=== PATIENT | female | born 1955 | race Caucasian/White ===

== ENCOUNTER → 2018-05-10 14:34 | Outpatient (CLI) | payer OTHER, SELFPAY ==
[2018-05-10 15:13] LABS: Hemoglobin A1C% w Est Avg Glu 9.9 % (4.0-6.0)
[2018-05-10 15:29] LABS: Alanine Aminotransferase 29 IU/L (9-52); Albumin 4.3 g/dL (3.5-5.0); Albumin Globulin Ratio 1.5 (1.0-2.8); Alkaline Phosphatase 86 U/L (38-126); Aspartate Aminotransferase 39 IU/L (14-36); BUN Creatinine Ratio 12.5 (6-22); Bilirubin Total 0.5 mg/dL (0.2-1.3); Blood Urea Nitrogen 10 mg/dL (7-17); Calcium 9.4 mg/dL (8.4-10.2); Carbon Dioxide 27 mmol/L (22-32); Chloride 107 mmol/L (98-107); Cholesterol 129 mg/dL (140-199); Estimated Glomerular Filt Rate > 60.0 mL/min (>60); Globulin 2.9 g/dL (1.7-4.1); Glucose 181 mg/dL (80-110); HDL Cholesterol 37 mg/dL (40-60); HEMOLYSIS < 15 (0-50); LDL Cholesterol Calculated 36 mg/dL (<100); Potassium 5.9 mmol/L (3.4-5.1); Sodium 145 mmol/L (137-145); Total Protein 7.2 g/dL (6.3-8.2); Triglycerides 280 mg/dL (35-150)
[2018-05-10 15:45] LABS: Free T3, Triiodothyronine Free 3.19 pg/mL (2.77-5.27); Free T4, Direct Thyroxine 1.88 ng/dL (0.78-2.19)
[2018-05-10 15:58] LABS: Thyroid Stimulating Hormone 0.58 uIU/mL (0.47-4.68)
== END ==
PROVIDERS: PCP Family Medicine; Visit Provider Family Medicine
DX: E03.9 Hypothyroidism, unspecified (principal); E11.42 Type 2 diabetes mellitus with diabetic polyneuropathy; E78.2 Mixed hyperlipidemia; G45.9 Transient cerebral ischemic attack, unspecified; I10 Essential (primary) hypertension; K57.30 Diverticulosis of large intestine without perforation or abscess without bleeding; R73.9 Hyperglycemia, unspecified; Z79.4 Long term (current) use of insulin; Z86.73 Personal history of transient ischemic attack (TIA), and cerebral infarction without residual deficits
CPT/HCPCS: 36415; 80053; 80061; 83036; 84439; 84443; 84481

== ENCOUNTER → 2018-05-14 15:49 | Outpatient (CLI) | payer OTHER, SELFPAY ==
[2018-05-14 16:39] LABS: HEMOLYSIS 47 (0-50); Potassium 4.5 mmol/L (3.4-5.1)
== END ==
PROVIDERS: Family Provider Family Medicine; PCP Family Medicine; Visit Provider Family Medicine
DX: E87.5 Hyperkalemia (principal)
CPT/HCPCS: 36415; 84132

== ENCOUNTER → 2018-08-23 14:14 | Outpatient (CLI) | payer OTHER, SELFPAY ==
--- NOTE | 2018-08-23 14:14 | DI.MG.S_ITS ---
BILATERAL DIGITAL SCREENING MAMMOGRAM 3D/2D WITH CAD: 08/23/2018 CLINICAL: Routine screening. Comparison is made to exams dated: 09/25/2014 mammogram and 01/12/2012 mammogram - [facility]. The tissue of both breasts is predominantly fatty. Current study was also evaluated with a Computer Aided Detection (CAD) system. No significant masses, calcifications, or other findings are seen in either breast. There has been no significant interval change. IMPRESSION: NEGATIVE There is no mammographic evidence of malignancy. A 1 year screening mammogram is recommended. This exam was interpreted at Station ID: [id number]. NOTE: For mammograms, a report in lay terms will be sent to the patient. Approximately 15% of breast malignancies will not be visualized mammographically. In the management of a palpable breast mass, a negative mammogram must not discourage biopsy of a clinically suspicious lesion. Electronically Signed By: Madelyn blankenship/ruddy:09/01/2018 09:20:57 letter sent: Normal Exam ACR BI-RADS Category 1: Negative [id number]
== END ==
PROVIDERS: Family Provider Family Medicine; PCP Family Medicine; Visit Provider Family Medicine
DX: Z12.31 Encounter for screening mammogram for malignant neoplasm of breast (principal)
CPT/HCPCS: 77063; 77067

== ENCOUNTER → 2018-09-22 12:13 | Outpatient (CLI) | payer OTHER, SELFPAY ==
--- NOTE | 2018-09-22 | DI.ECHO.S_ITS ---
[facility] +---------+ : : [address] : : : : [place], : : : : [place] [address] : : : : Phone: [phone] + [facility]-[id number] Echocardiogram Report + + :Name: ALVERTO LOZANO Study Date: 09/22/2018 Height: 66 in : :[facility] Weight: 183 lb : : Gender: Female BSA: 1.9 m2 : :: 1955 Age: 63 yrs BP: 166/88 mmHg: :Reason For Study: STENOSIS OF CAROTID, NEAR SYNCOPE : :Ordering Physician: Paris : :Teresa Performed By: Fawn Diggs : :Referring: PARIS SIDHU : + + Interpretation Summary Left ventricular systolic function is normal without focal wall motion abnormalities with the ejection fraction visually estimated to be 65-70%. There is moderate concentric left ventricular hypertrophy with a relatively small left ventricular cavity but there is no echo evidence for significant left ventricular outflow tract obstruction. There has been no significant change since the previous study. The right ventricle grossly appears normal in size with probable normal systolic function and grossly appears unchanged compared to the previous study. Pulmonary artery pressures cannot be estimated because of the lack of a measurable TR jet velocity. Both atria are fairly small and have mildly decreased in size since the prior echo exam. There is no significant valvular heart disease. The ascending aorta is mild-moderately enlarged but is unchanged compared to the previous study. The patient was in sinus tachycardia with heart rates between 100-105 bpm during the exam which is considerably faster compared to the previous study. Procedure: A two-dimensional transthoracic echocardiogram with color flow and Doppler was performed. The study quality was technically adequate. Comparison is made with the echocardiogram of 01/13/2017. The patient was in sinus tachycardia with heart rates between 100-105 bpm during the exam. This is considerably faster compared to the previous study. Left Ventricle: There is moderate concentric left ventricular hypertrophy. The left ventricular cavity is small. There is no echo evidence for significant left ventricular outflow tract obstruction. Left ventricular systolic function is normal without focal wall motion abnormalities. The ejection fraction is estimated to be 65-70%. Diastolic function could not be accurately assessed due to tachycardia. There has been no significant change since the previous study. Right Ventricle: The right ventricle grossly appears normal in size with probable normal systolic function. This is unchanged compared to the previous study. Atria: The left atrium is small. Both atria have mildly decreased in size since the prior echo exam. Right atrium is small. There is no Doppler evidence for an interatrial shunt. Mitral Valve: There is mild mitral annular calcification. The mitral valve leaflets appear mildly thickened, but open well. There is no mitral regurgitation noted. Aortic Valve: The aortic valve is not well visualized. The aortic valve is grossly normal. The aortic valve opens well. There is no aortic valve stenosis. No aortic regurgitation is present. Tricuspid Valve: The tricuspid valve is not well visualized, but is grossly normal. There is trace tricuspid regurgitation. Pulmonary artery pressures cannot be estimated because of the lack of a measurable TR jet velocity. Pulmonic Valve: The pulmonic valve is not well seen, but is grossly normal. There is no significant valvular heart disease. Great Vessels: The aortic root is normal size. The ascending aorta is mild- moderately enlarged. This is unchanged compared to the previous study. The aortic arch is normal in size. The pulmonary is not well visualized. The inferior vena cava was not visualized. Pericardium/ Pleura There is no pericardial effusion. There is no pleural effusion. MMode/2D Measurements & Calculations LVIDd: 3.8 cm LVOT diam: 2.0 cm LVIDs: 2.4 cm Ao root diam: 2.8 cm IVSd: 1.4 cm asc Aorta Diam: 3.9 cm LVPWd: 0.88 cm Ao Arch Diam (Prox Trans): 2.2 cm LV troy. diameter/BSA (cm/m^2): 2.0 LV sys. diameter/BSA (cm/m^2): 1.2 FS: 36.7 % LA A2 area: 11.3 cm2 RA long axis: 3.6 cm LA A4 area: 12.2 cm2 RA area: 6.2 cm2 LA length (vol): 4.7 cm RA vol: 9.1 ml LA vol: 24.5 ml RA : 4.7 ml/m2 LA vol index: 12.7 ml/m2 RVD1 (basal): 2.3 cm Doppler Measurements & Calculations Ao V2 max: 114.3 cm/sec LVOT Max Gerardo: 89.6 cm/sec Ao V2 mean: 88.9 cm/sec LV V1 max P.2 mmHg Ao V2 VTI: 16.8 cm LV V1 VTI: 12.1 cm Ao max P.2 mmHg Ao mean P.3 mmHg NORMA(I,D): 2.2 cm2 SV(LVOT): 36.3 ml NORMA(V,D): 2.3 cm2 NORMA indexed to BSA (cm^2/m^2): 1.1 sev ratio: 0.72 Reading Physician:LORENA
--- NOTE | 2018-09-22 | DI.US.S_ITS ---
PROCEDURE: US CAROTID DOPPLER BI INDICATIONS: STENOSIS OF CAROTID ARTERY,NEAR SYNCOPE TECHNIQUE: Color and pulse Doppler interrogation was performed of both carotid systems, with image documentation and velocity measurements. COMPARISON: None. FINDINGS: Stenosis calculations are based on SRU (Society of Radiologists in Ultrasound) criteria. Right side: Brachial blood pressure: 140/89 mm Hg. Common carotid artery peak systolic velocity: 93 cm/sec. Internal carotid artery peak systolic velocity: 209 cm/sec. Internal carotid artery end diastolic velocity: 57 cm/sec. External carotid artery peak systolic velocity: 91 cm/sec. ICA/CCA peak systolic ratio: 2.26. Steinberg scale imaging description: Calcified plaque Percent internal carotid artery stenosis: 50-69%. Vertebral artery: Flow direction is antegrade. Left side: Brachial blood pressure: 57/90 mm Hg. Common carotid artery peak systolic velocity: 94 cm/sec. Internal carotid artery peak systolic velocity: 54 cm/sec. Internal carotid artery end diastolic velocity: 17 cm/sec. External carotid artery peak systolic velocity: 110 cm/sec. ICA/CCA peak systolic ratio: 0.58. Steinberg scale imaging description: No definite plaque identified, however origin of the left internal carotid artery is poorly visualized due to scar tissue. Percent internal carotid artery stenosis: Less than 50%. Vertebral artery: Flow direction is antegrade. IMPRESSION: 1. 50-69% stenosis of the origin of the right internal carotid artery. 2. Less than 50% stenosis of left internal carotid artery. Please note the origin of the left internal carotid artery is poorly visualized due to a postsurgical soft tissue scarring. Dictated by: Melissa Ch MD, PhD on 09/22/2018 at 14:27 Approved by: Melissa Ch MD, PhD on 09/22/2018 at 14:30
== END ==
PROVIDERS: Family Provider Family Medicine; PCP Family Medicine; Visit Provider Internal Medicine Cardiovascular Disease
DX: I65.23 Occlusion and stenosis of bilateral carotid arteries (principal); R55 Syncope and collapse
CPT/HCPCS: 93306; 93880

== ENCOUNTER 2019-01-11 00:52 | Observation (INO) | payer OTHER, SELFPAY ==
[2019-01-11] VITALS (15 sets, daily range): BP systolic 137–203; BP diastolic 71–100; PULSE 67–91; RESP 15–20; TEMP 36.5–37; O2SAT 93–97; BMI 29.0
--- NOTE | 2019-01-11 | DI.MRI.S_ITS ---
PROCEDURE: MR ANGIO HEAD WO CON INDICATIONS: RIGHT SIDED WEAKNESS. LEFT SIDED HEADACHES TECHNIQUE: Noncontrast axial 3-D [id number] MR angiogram, with 3-dimensional maximum intensity projection (MIP) reformats of the internal carotid arteries and posterior circulation then performed. COMPARISON: [facility], , ANGIO HEAD WITHOUT CONTRAST, 05/11/2015, 11:23. FINDINGS: Image quality: Excellent. Anterior circulation: There is a moderate to high-grade stenosis within the right clinoid internal carotid artery. There is mild diffuse stenosis of the bilateral internal arteries. The flow within the paired anterior cerebral arteries is normal and symmetric. The flow within the middle cerebral arteries is normal and symmetric. The anterior communicating artery is seen. No stenoses, occlusions, or aneurysms. Posterior circulation: Visualized portions of the vertebral arteries demonstrate normal caliber, and join to form a normal appearing basilar artery. Near origin of the right posterior cerebral artery. There is a high-grade stenosis within the proximal P2 segment of the left posterior cerebral artery. The flow within the posterior cerebral arteries is otherwise normal and symmetric. No stenoses, occlusions, or aneurysms. IMPRESSION: 1. Bilateral anterior and posterior circulation stenoses. Dictated by: Jame Urbina M.D. on 01/11/2019 at 8:35 Approved by: Jame Urbina M.D. on 01/11/2019 at 8:40
--- NOTE | 2019-01-11 | DI.ECHO.S_ITS ---
[facility] +---------+ : : [address] : : [place] : : : : [id number] : : : : Phone: [phone]+ Echocardiogram Report + + :Name: ALVERTO LOZANO Study Date: 01/11/2019 Height: 63 in : :[facility] Exam Location: [place] Weight: 183 lb : : Gender: Female BSA: 1.9 m2 : :: 1955 Age: 63 yrs BP: 166/88 mmHg: :Reason For Study: TIA : :Ordering Physician: Sung : :Hospitalist Performed By: Annette Page : :Referring: RAFA HUBER : + + Interpretation Summary A limited echocardiogram was performed to assess for a possible source of a TIA. There is apical hypokinesis. Apical hypokinesis appears to be new since prior study. Echogenic structure noted in the apex of the left ventricle. This was not visualized on the prior exam's. Measuring at approximately 1x 1 cm. 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 There is no Doppler evidence for an interatrial shunt. Injection of contrast documented no interatrial shunt. Procedure: A two-dimensional transthoracic echocardiogram with color flow and Doppler was performed in limited views only. The study quality was technically adequate. Comparison is made with the echocardiogram of 09/22/2018. A saline contrast injection was performed to assess for cardiac shunting. The patient was in normal sinus rhythm during the exam. Left Ventricle: Echogenic structure noted in the apex of the left ventricle. This was not visualized on the prior exam's. Measuring at approximately 1x 1 cm. 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 There is apical hypokinesis. Apical hypokinesis appears to be new since prior study. Atria: There is no Doppler evidence for an interatrial shunt. Injection of contrast documented no interatrial shunt. MMode/2D Measurements & Calculations asc Aorta Diam: 3.8 cm Reading Physician:09:55 AM
--- NOTE | 2019-01-11 | DI.MRI.S_ITS ---
PROCEDURE: MR HEAD/BRAIN WO CON INDICATIONS: TIA, hx CVA. RIGHT SIDED NUMBNESS. LEFT SIDED HEADACHE TECHNIQUE: Non-contrast axial T1 spin echo, axial T2 fast spin echo, sagittal and axial FLAIR, coronal T2 fast spin echo, axial gradient echo, axial diffusion and ADC through the brain. COMPARISON: [facility], MR, BRAIN WITHOUT CONTRAST, 01/13/2017, 11:45. [facility], MR, BRAIN WITHOUT CONTRAST, 05/11/2015, 11:23. FINDINGS: Image quality: Excellent. CSF spaces: Ventricles appear symmetric in size and shape. Basal cisterns are patent. No extra-axial fluid collections. Brain: No intracranial bleeds or mass effects. There is cerebral volume loss for age. There are periventricular and deep white matter chronic small vessel ischemic changes. Brainstem appears normal. Diffusion-weighted images show no acute ischemic insults. No chronic ischemic insults. Normal intravascular flow voids are present. Skull and face: Calvarial bone marrow is normal in signal. Orbits are normal. Sinuses: Mild mucosal thickening within the bilateral ethmoid air cells. Sinuses and mastoids are otherwise clear. IMPRESSION: 1. No acute process. No recent infarct. 2. Mild volume loss and small vessel ischemic disease. 3. Mild sinus disease. Dictated by: Jame Urbina M.D. on 01/11/2019 at 8:34 Approved by: Jame Urbina M.D. on 01/11/2019 at 8:35
--- NOTE | 2019-01-11 00:58 | DI.CT.S_ITS ---
PROCEDURE: CT HEAD/BRAIN WO CON INDICATIONS: TIM, R side weakness/numbness hx CVA TECHNIQUE: Noncontrast 4.5 mm thick angled axial sections acquired from the foramen magnum to the vertex, with coronal and sagittal reformats. For radiation dose reduction, the following was used: automated exposure control, adjustment of mA and/or kV according to patient size. COMPARISON: [facility], CT, HEAD WITHOUT CONTRAST, 01/12/2017, 19:46. FINDINGS: Image quality: Excellent. CSF spaces: Basal cisterns are patent. No extra-axial fluid collections. The ventricles are symmetric in size and shape. Brain: No intracranial bleeds or masses. Focal loss of he-white matter differentiation noted in the anterior margin of the left temporal lobe which could represent artifact versus subacute infarct. There is cerebral volume loss for age, with resultant ventricular and sulcal prominence. There are periventricular and deep white matter chronic small vessel ischemic changes. There is intracranial internal carotid artery and vertebral artery atherosclerosis. Skull and face: Calvarium and visualized facial bones appear intact, without suspicious lesions. Sinuses: Visualized sinuses and mastoids are clear. IMPRESSION: Anterior left temporal lobe loss of he-white matter differentiation compatible with artifact versus subacute infarct. Dictated by: Melissa Ch MD, PhD on 01/11/2019 at 7:45 Approved by: Melissa Ch MD, PhD on 01/11/2019 at 7:47
[2019-01-11] MEDS: SODIUM CHLORIDE 0.9% 1,000 ML 150 ML IV (01:30)
--- NOTE | 2019-01-11 01:33 | ED_ITS ---
HPI - Neuro Symptoms/Deficit General Chief Complaint: Neuro Symptoms/Deficit Stated Complaint: states having a stroke Time Seen by Provider: 01/11/19 00:57 Source: patient and family Mode of arrival: wheelchair Limitations: no limitations History of Present Illness HPI Narrative: 63-year-old female with history of hypertension diabetes and prior stroke presents to the emergency department with a chief complaint ne urologic symptoms that began tonight at 9:00 p.m.. She states initially she had some numbness and tingling in her right arm which went away and she went to sleep. She woke up at midnight with a severe headache a recurrence of some of the pain in her right arm. She denies any recent injury or trauma. She has had no fever or chills. She admits to being a bit confused and having some blurred vision. She was not activated as a code stroke because her symptoms are over 4.5 hours and her LAMS score is low. Onset (ago): hour(s) Last Observed Normal: 21:00 History of same: No Severity: moderate Quality: weak and tingling Relieving factors: none Exacerbating factors: none Context: gradual onset On Anticoagulants: No Associated symptoms: confusion Treatments Prior to Arrival: none Related Data Home Medications Medication Instructions Recorded Confirmed Glucose: Test Strips #1 ea 05/24/18 12/21/18 Lancets #1 ea 05/24/18 12/21/18 Previous Rx's Medication Instructions Recorded adjuvant AS01B (PF), component 0.5 ml IM ONCE #0.5 ml 05/24/18 vial 1 of 2 intramuscular suspension atorvastatin 20 mg tablet 20 mg PO HS #90 tab 05/24/18 clopidogrel 75 mg tablet 75 mg PO HS #90 tab 05/24/18 gabapentin 300 mg capsule 300 mg PO TID #270 cap 05/24/18 levothyroxine 200 mcg tablet 200 mcg PO QAM #90 tab 05/24/18 pneumococcal 13-mark conj 0.5 ml IM ONCE #0.5 ml 05/24/18 vaccine-dip crm (PF) 0.5 mL IM syringe paroxetine 30 mg tablet 30 mg PO QAM #90 tab 07/12/18 omeprazole 20 mg capsule,delayed 20 mg PO DAILY #90 cap 11/02/18 release [place] #100 each 11/17/18 insulin NPH isophane U-100 human See Rx Instructions SUBCUT BID #90 11/17/18 100 unit/mL (3 mL) subcutaneous pen ml levothyroxine 25 mcg tablet 25 mcg PO QAM #90 tab 11/17/18 Allergies Allergy/AdvReac Type Severity Reaction Status Date / Time codeine [CODEINE] Allergy Unknown VOMITING Verified 12/21/18 17:26 hydromorphone [From DILAUDID] Allergy Unknown I DON'T Verified 12/21/18 17:26 WAKE UP meperidine [From DEMEROL] Allergy Unknown VOMITING Verified 12/21/18 17:26 Penicillins [PENICILLINS] Allergy Unknown THROAT Verified 12/21/18 17:26 CLOSES Review of Systems Constitutional Denies chills, Denies fever(s), Denies lethargy and Reports weakness Eyes Denies change in vision, Denies eye discharge, Denies irritation and Reports loss of vision ENT Ears, Nose, Mouth, and Throat: Denies change in voice, Denies neck pain and Denies sore throat Cardiovascular Denies chest pain, Denies irregular heart rhythm, Denies lightheadedness, Denies palpitations, Denies dyspnea, Denies dyspnea on exertion and Denies orthopnea Respiratory Denies cough, Denies dyspnea, Denies dyspnea on exertion and Denies wheezing Gastrointestinal Gastrointestinal: Denies abdominal pain, Denies change in bowel habits, Denies diarrhea, Denies nausea and Denies vomiting Genitourinary Denies hematuria, Denies flank pain, Denies urinary incontinence and Denies urinary urgency Musculoskeletal Denies neck pain Integumentary/Breasts Denies pruritus, Denies erythema, Denies rash and Denies wounds Neurologic Reports confusion, Reports focal weakness, Reports loss of vision and Reports weakness Psychiatric Denies anxiety, Reports confusion, Denies depression, Denies homicidal ideation and Denies suicidal ideation Endocrine Denies palpitations Hematologic/Lymphatic Denies easy bruising Allergic/Immunologic Denies wheezing [facility] Medical History Cataracts, bilateral (Acute 2007) Carotid artery disease (Chronic 2013) Chronic back pain (Chronic) Depression (Chronic 1985) Diabetes (Chronic 2004) GERD (gastroesophageal reflux disease) (Chronic 1989) Generalized headaches (Chronic) Hyperlipidemia (Chronic) Hypothyroidism (Chronic) Migraines (Chronic) Peripheral vascular disease (Chronic 2012) Sleep apnea (Chronic) Vertigo (Chronic 2014) Chickenpox (Resolved 1957) Colitis (Resolved 1988) Dysplastic polyp of colon (Resolved ~2001) Fractures (Resolved) History of trigger finger (Resolved) Hyperthyroidism (Resolved 1993) Measles (Resolved 1956) Mumps (Resolved 1958) Plantar warts (Resolved) Stroke (Resolved 2013) Surgical History History of left-sided carotid endarterectomy (Resolved) History of partial colectomy (Resolved) Hx of cholecystectomy (Resolved) Hx of knee surgery (Resolved) Hx of surgical procedure (Resolved) Hx of surgical procedure (Resolved) History of tonsillectomy Status post appendectomy Family History (Updated 05/20/18 @ 13:15 by Mariana Saab LPN) Mother Cancer Sister Diabetes mellitus Father Cancer Social History Smoking Status: Current every day smoker Tobacco: How many years used: 50 alcohol intake: never Family History Mother Cancer Sister Diabetes mellitus Father Cancer Social History Smoking Status: Current every day smoker Tobacco: How many years used: 50 alcohol intake: never Exam Narrative Exam Narrative: GENERAL: 63-year-old female appears stated age, obviously uncomfortable, sitting in a dark room with a towel over her eyes HEAD: Atraumatic. Normocephalic. No temporal or scalp tenderness. EYES: Pupils equal round and reactive. Extraocular motions intact. No scleral icterus. No injection or drainage. ENT: Nose without bleeding, purulent drainage or septal hematoma. Throat without erythema, tonsillar hypertrophy or exudate. Uvula midline. Airway patent. NECK: Trachea midline. No JVD or lymphadenopathy. Supple, nontender, no meningeal signs. CARDIOVASCULAR: Regular rate and rhythm without murmurs, gallops, or rubs. RESPIRATORY: Clear to auscultation. Breath sounds equal bilaterally. No wheezes, rales, or rhonchi. GASTROINTESTINAL: Abdomen soft, non-tender, nondistended. No hepato-splen omegaly, or palpable masses. No guarding. EXTREMITIES: No clubbing, cyanosis, or edema. No joint tenderness, effusion, or edema noted. BACK: Nontender without deformity or crepitance. No flank tenderness. NEURO: AOx3. SKIN: No rash or erythema. Initial Vital Signs Initial Vital Signs: Vital Signs Pulse Rate 87 01/11/19 01:00 Respiratory Rate 17 01/11/19 01:00 Blood Pressure 195/84 H 01/11/19 01:00 Pulse Oximetry 94 01/11/19 01:00 Scores NIH Stroke Scale Level of Conciousness: Alert, keenly responsive Ask month/age: Answers both questions correctly. Open/close eyes, close hand: Performs both tasks correctly Best gaze horizontal: Normal Visual delgadillo: No visual loss Facial palsy: Normal symetrical movement Left arm drift: No drift for full 10 sec Right arm drift: Drifts down, not to bed Left leg drift: No drift for full 10 sec Right leg drift: No drift for full 10 sec Limb ataxia: Absent Sensory on face/arms/legs: Normal, no sensory loss Best language: No aphasia, normal Dysarthria: Normal Extinction or inattention: No abnormality Total NIH Stroke scale score: 1 Course Orders Ordered: ED Orders 01/11/19 00:58 CT head/brain wo con Stat Urine Drug Screen, Rapid Stat EKG-12 Lead Stat 01/11/19 01:30 Basic Metabolic Panel Stat Complete Blood Count AUTO DIFF Stat Partial Thromboplastin Time Stat Prothrombin Time INR Stat Troponin I Stat 01/11/19 01:33 CT angio head and neck Stat Sodium Chloride (Normal Saline 0.9%) 1,000 mls @ 150 mls/hr IV CONT PADMINI Last Admin: 01/11/19 01:30 Dose: 150 mls/hr Discontinued Medications Ketorolac Tromethamine (Toradol) 15 mg IV NOW ONE Stop: 01/11/19 03:00 Last Admin: 01/11/19 03:05 Dose: 15 mg Labetalol HCl (Normodyne) 10 mg IV NOW ONE Stop: 01/11/19 03:00 Last Admin: 01/11/19 03:10 Dose: 5 mg Consultations Consultation #1: call to [facility] Stroke upon receipt of head CT. We discussed treating HTN which may be contributing to TIM, but elect to hold off until results of CTA are known. Images acquired and in the process of being pushed Time: 02:06 Consultation #2: call back to [facility]. ok to treat HTN with goal 180SBP. At this point unclear if it is HTN secondary to ischemic event, HTN episode, or atypical migraine. Recommends admission to hospital for MRI/MRA and echo Consultation #3: hospitalist happy to accept Vital Signs - 8 hr 01/11/19 01:00 01/11/19 01:05 01/11/19 01:16 Temperature 97.9 F Pulse Rate 87 88 89 Respiratory Rate 17 18 20 Blood Pressure 194/100 H Blood Pressure [Left Arm] 195/84 H 194/100 H Pulse Oximetry 94 93 95 01/11/19 02:00 01/11/19 02:49 01/11/19 03:11 Temperature Pulse Rate 87 89 91 H Respiratory Rate 16 19 Blood Pressure Blood Pressure [Left Arm] 185/94 H 187/100 H 203/91 H Pulse Oximetry 94 95 01/11/19 03:25 Temperature Pulse Rate 82 Respiratory Rate Blood Pressure Blood Pressure [Left Arm] 153/78 H Pulse Oximetry MDM - Neuro Symptoms/Deficit Lab Data Result diagrams: 01/11/19 01:30 01/11/19 01:30 Lab Results 01/11/19 01/11/19 01/11/19 Range/Units 01:30 01:30 01:30 WBC 7.6 (4.5-11.0) X10^3/uL RBC 5.00 (4.0-5.2) X10^6/uL Hgb 12.9 (12.0-16.0) g/dL Hct 39.7 (36-46) % MCV 79.4 L (80-100) fL MCH 25.8 L (26-34) PG MCHC 32.5 (30-36) % RDW 15.9 H (11.6-14.8) % Plt Count 227 (150-400) X10^3/uL Neut % (Auto) 57.4 (50-75) % Lymph % (Auto) 34.1 (25-40) % [place] % (Auto) 4.5 (3-14) % Eos % (Auto) 3.0 (2-4) % Baso % (Auto) 1.0 (0-2) % Neut # (Auto) 4400 (8296-2521) /uL Lymph # (Auto) 2600 (0408-6281) /uL [place] # (Auto) 300 (0-900) /uL Eos # (Auto) 200 (0-450) /uL Baso # (Auto) 100 (0-100) /uL PT 13.0 H (10.1-12.7) SECONDS INR 1.1 (0.9-1.3) APTT 32 (26.4-36.2) SECONDS Sodium (137-145) mmol/L Potassium (3.4-5.1) mmol/L Chloride (98-107) mmol/L Carbon Dioxide (22-32) mmol/L BUN (7-17) mg/dL Creatinine (0.52-1.04) mg/dL Estimated GFR (>60) mL/min BUN/Creatinine Ratio (6-22) Glucose (80-110) mg/dL Calcium (8.4-10.2) mg/dL Troponin I 0.073 H (0.01-0.034) ng/mL 01/11/19 Range/Units 01:30 WBC (4.5-11.0) X10^3/uL RBC (4.0-5.2) X10^6/uL Hgb (12.0-16.0) g/dL Hct (36-46) % MCV (80-100) fL MCH (26-34) PG MCHC (30-36) % RDW (11.6-14.8) % Plt Count (150-400) X10^3/uL Neut % (Auto) (50-75) % Lymph % (Auto) (25-40) % [place] % (Auto) (3-14) % Eos % (Auto) (2-4) % Baso % (Auto) (0-2) % Neut # (Auto) (2961-5303) /uL Lymph # (Auto) (0114-2407) /uL [place] # (Auto) (0-900) /uL Eos # (Auto) (0-450) /uL Baso # (Auto) (0-100) /uL PT (10.1-12.7) SECONDS INR (0.9-1.3) APTT (26.4-36.2) SECONDS Sodium 141 (137-145) mmol/L Potassium 3.9 (3.4-5.1) mmol/L Chloride 104 (98-107) mmol/L Carbon Dioxide 29 (22-32) mmol/L BUN 9 (7-17) mg/dL Creatinine 1.00 (0.52-1.04) mg/dL Estimated GFR 55.6 L (>60) mL/min BUN/Creatinine Ratio 9.0 (6-22) Glucose 151 H (80-110) mg/dL Calcium 8.1 L (8.4-10.2) mg/dL Troponin I (0.01-0.034) ng/mL Point of Care Testing Glucose POC [address] scan - head: Radiologist's impression: Possible nonhemorrhagic infarct of the left temporal tip CTA Head/Neck: Radiologist's impression: No acute intracranial pathology. Specifically no intracranial mass, hemorrhage or evidence for acute infarction, moderate carotid artery stenosis of the right proximal carotid Discharge Plan Departure Patient Disposition: Admitted as Observation Clinical Impression: Brain TIA Hypertension Qualifiers: Hypertension type: essential hypertension Qualified Code(s): I10 - Essential (primary) hypertension Referrals: Dasha Trejo DO [Primary Care Provider] -
--- NOTE | 2019-01-11 01:33 | DI.CT.S_ITS ---
PROCEDURE: CT ANGIO HEAD AND NECK INDICATIONS: severe TIM, HTN, ischemic CVA on CT TECHNIQUE: Pre-contrast 4.5 mm thick sections acquired from the foramen magnum to the vertex. After the administration of intravenous contrast, 1 mm thick sections acquired from the aortic arch through the [place]. Post-contrast 4.5 mm thick sections then re-acquired from the foramen magnum to the vertex. 3-dimensional zafsoba-pfyprhyph-snnbsgnvyy (MIP) and/or volume rendering reformats were acquired of the central intracranial vasculature and neck separately. COMPARISON: [facility], CT, CT HEAD/BRAIN WO CON, 01/11/2019, 1:00. FINDINGS: Image quality: Excellent. BRAIN: CSF spaces: Ventricles are normal in size and shape. Basal cisterns are patent. No extra-axial fluid collections. Brain: No midline shift. No intracranial bleeds or masses. Steinberg-white matter interface appears intact. Skull and face: Calvarium and facial bones appear intact, without suspicious lesions. Orbits appear normal. Sinuses: Sinuses and mastoids are clear. HEAD CT ANGIOGRAPHY: Anterior circulation: Intracranial internal carotid arteries are normal in flow. Carotid calcification is noted in the cavernous and clinoid segments of the internal carotid arteries bilaterally because multifocal mild to moderate stenoses. The flow within the paired anterior cerebral arteries is normal and symmetric. The flow within the middle cerebral arteries is normal and symmetric. The anterior communicating artery is seen. No aneurysms are seen. Posterior circulation: Mild, diffuse atherosclerotic irregularity noted in the V4 segments of vertebral arteries bilaterally which does not cause notable stenosis. Flow within the posterior cerebral arteries is normal and symmetric. No aneurysms are seen. NECK CT ANGIOGRAPHY: Carotid system: The great vessels demonstrate a conventional anatomy as they arise from the aortic arch. The origins of the common carotid arteries appear patent. The common carotid arteries demonstrate normal caliber and courses. Postsurgical changes compatible with left carotid endarterectomy noted. Left internal carotid artery is fully patent. Calcified atherosclerotic plaque is noted in the portion of the right internal carotid artery which causes high grade approximately 70% stenosis of the vessel. Posterior circulation: The origins of the vertebral arteries both appear widely patent. The left vertebral artery arises from the aortic arch. The more superior extracranial portions of both vertebral arteries also demonstrate normal courses and calibers. They join to form a normal appearing basilar artery. Soft tissues: Visualized neck soft tissues demonstrate no suspicious abnormalities. Bones: No suspicious bony lesions. Visualized cervical spine appears normally aligned. IMPRESSION: 1. No acute intracranial disease process. 2. No large vessel occlusion, vascular dissection or aneurysm. 3. High-grade, proximal the 70-80% stenosis of the origin of the right internal carotid artery. 4. Origin of the left internal artery is fully patent. Status post left internal carotid endarterectomy. Any quantitative measurements of stenosis were performed using NASCET criteria. Dictated by: Melissa Ch MD, PhD on 01/11/2019 at 7:52 Approved by: Melissa Ch MD, PhD on 01/11/2019 at 8:04
--- NOTE | 2019-01-11 01:36 | PC.NURSE ---
numbness started at 2100 last night
[2019-01-11 01:40] LABS: Add Manual Diff / Slide Review NO; Basophils Absolute Auto 100 /uL (0-100); Eosinophils Absolute Auto 200 /uL (0-450); Hematocrit 39.7 % (36-46); Hemoglobin 12.9 g/dL (12.0-16.0); Lymphocytes Absolute Auto 2600 /uL (1100-4500); Lymphocytes Percent Auto 34.1 % (25-40); Mean Corpuscular HGB Conc 32.5 % (30-36); Mean Corpuscular Hemoglobin 25.8 PG (26-34); Mean Corpuscular Volume 79.4 fL (80-100); Monocytes Absolute Auto 300 /uL (0-900); Monocytes Percent Auto 4.5 % (3-14); Neutrophils Absolute Auto 4400 /uL (1500-7000); Neutrophils Percent Auto 57.4 % (50-75); Platelet Count 227 X10^3/uL (150-400); Red Cell Distribution Width 15.9 % (11.6-14.8); White Blood Cell Count 7.6 X10^3/uL (4.5-11.0)
[2019-01-11 01:45] LABS: INR 1.1 (0.9-1.3)
--- NOTE | 2019-01-11 01:47 | PC.NURSE ---
Code stroke not paged overhead, provider states she's outside [facility] and lams is 0. lkn 2100 yesterday with resolution of symptoms shortly after. Pt states she felt right side tingling and numbness at about 9pm yesterday and it resolved in just a little while later. states at 0000 she got this bad headache.
[2019-01-11 01:48] LABS: PTT Partial Thromboplastin Tim 32 SECONDS (26.4-36.2)
[2019-01-11 01:49] LABS: Blood Urea Nitrogen 9 mg/dL (7-17); Calcium 8.1 mg/dL (8.4-10.2); Carbon Dioxide 29 mmol/L (22-32); Chloride 104 mmol/L (98-107); Estimated Glomerular Filt Rate 55.6 mL/min (>60); Glucose 151 mg/dL (80-110); HEMOLYSIS < 15 (0-50); Potassium 3.9 mmol/L (3.4-5.1); Sodium 141 mmol/L (137-145)
[2019-01-11 02:01] LABS: Troponin I 0.073 ng/mL (0.01-0.034)
[2019-01-11] MEDS: KETOROLAC 60 MG/2 ML VIAL 15 MG IV (03:05)
[2019-01-11] MEDS: LABETALOL 100 MG/20ML MDV 10 MG IV (03:10)
--- NOTE | 2019-01-11 03:11 | PC.NURSE ---
pre latetalol administration
--- NOTE | 2019-01-11 03:26 | PC.NURSE ---
post labetalol administration. Half of ordered dose held. 5mg labetalol pushed.
--- NOTE | 2019-01-11 04:14 | PM.HP.1 ---
History of Present Illness Date Patient Seen: 01/11/19 Time Patient Seen: 04:00 Chief complaint: states having a stroke Narrative: Melida Abbott is a 63-year-old female patient with a history of prior CVA with residual right hemiparesis, hypertension, diabetes, neuropathy, hypothyroidism and depression who presents to the ER with complaints of right face and right hand numbness and tingling. The patient states that she had an onset of symptoms approximately 9:30 p.m. with a associated sudden onset headache and confusion. She reports no nausea vomiting, visual changes or diaphoresis. She reports left-sided CVA 5 years ago with persistent right lower lobe extremity weakness for which she uses a cane for ambulation. She reports another episode occurring 2 years ago with right-sided symptoms and again 3 weeks ago she experienced transitory symptoms on the left face and hand which spontaneously resolved. She reports no prodromal symptoms and has had no recent illness and denies fevers or chills, nasal congestion or sore throat. She reports no chest pain or palpitations, shortness of breath cough or wheezing. She denies abdominal pain nausea vomiting and has no constipation or diarrhea. Upon arrival in the emergency department the patient was found to be afebrile with a heart rate of 87, hypertensive at 195/84, respirations 17 and 94% on room air. The patient subsequently had pressure elevated up to 203/91. The patient had head CT which per the night Radiology Service finds possible acute nonhemorrhagic infarct in the left temporal tip. Neurology was consulted and a CTA was obtained which finds no acute intracranial pathology including mass hemorrhage or evidence of acute infarction. Does note moderate 50-69% arterials stenosis of the right internal carotid and mild, less than 50%, right internal carotid artery. NIH score in the ER was 1 for persistent right arm drift. On laboratory analysis the patient has a normal CBC however she has microcytic hypochromic RBCs. Her chemistry results are with also within normal limits except for blood sugar of 151. She has elevated PT at 13.0 and INR 1.1. Tele neurology was again consulted following obtaining the CTA with recommendation for continued workup for TIA. Patient History Medical History (Updated 01/11/19 @ 04:24 by PATO Renee) TIA (transient ischemic attack) (Acute) Cataracts, bilateral (Acute 2007) Carotid artery disease (Chronic 2013) Chronic back pain (Chronic) Depression (Chronic 1985) Diabetes (Chronic 2004) GERD (gastroesophageal reflux disease) (Chronic 1989) Generalized headaches (Chronic) Hyperlipidemia (Chronic) Hypothyroidism (Chronic) Migraines (Chronic) Peripheral vascular disease (Chronic 2012) Sleep apnea (Chronic) Vertigo (Chronic 2014) Chickenpox (Resolved 1957) Colitis (Resolved 1988) Dysplastic polyp of colon (Resolved ~2001) Fractures (Resolved) History of trigger finger (Resolved) Hyperthyroidism (Resolved 1993) Measles (Resolved 1956) Mumps (Resolved 1958) Plantar warts (Resolved) Stroke (Resolved 2013) Surgical History History of left-sided carotid endarterectomy (Resolved) History of partial colectomy (Resolved) Hx of cholecystectomy (Resolved) Hx of knee surgery (Resolved) Hx of surgical procedure (Resolved) Hx of surgical procedure (Resolved) History of tonsillectomy Status post appendectomy Family History Mother Cancer Sister Diabetes mellitus Father Cancer Social History Smoking Status: Current every day smoker Tobacco: How many years used: 50 alcohol intake: never Family & Social History Family History Mother Cancer Sister Diabetes mellitus Father Cancer Tobacco & Substance use: Smoking Status Current every day smoker alcohol intake never Comment: The patient lives in a house with her son and his family and her to whom she has been for 41 years. Her mother and father have both from cancer and has a sister with diabetes. Smoking: The patient currently smokes 1-1/2 pack per day, with a 50 year smoking history. Alcohol: The patient denies consuming alcohol. Caffeine: The patient or drinking 2 cups of coffee daily. Substance use: Patient denies recreation pharmaceuticals, herbal or cannabis products. Advanced directives. Indirect conversation with the patient she states her wishes to be DO NOT RESUSCITATE. She designates her to be surrogate decision maker. Meds Home Medications Medication Instructions Recorded Confirmed Type Glucose: Test Strips #1 ea 05/24/18 12/21/18 History Lancets #1 ea 05/24/18 12/21/18 History adjuvant AS01B (PF), component 0.5 ml IM ONCE #0.5 ml 05/24/18 01/11/19 Rx vial 1 of 2 intramuscular suspension atorvastatin 20 mg tablet 20 mg PO HS #90 tab 05/24/18 01/11/19 Rx clopidogrel 75 mg tablet 75 mg PO HS #90 tab 05/24/18 01/11/19 Rx gabapentin 300 mg capsule 300 mg PO TID #270 cap 05/24/18 01/11/19 Rx levothyroxine 200 mcg tablet 200 mcg PO QAM #90 tab 05/24/18 01/11/19 Rx pneumococcal 13-mark conj 0.5 ml IM ONCE #0.5 ml 05/24/18 01/11/19 Rx vaccine-dip crm (PF) 0.5 mL IM syringe paroxetine 30 mg tablet 30 mg PO QAM #90 tab 07/12/18 01/11/19 Rx omeprazole 20 mg capsule,delayed 20 mg PO DAILY #90 cap 11/02/18 01/11/19 Rx release [place]mar #100 each 11/17/18 12/21/18 Rx insulin NPH isophane U-100 human See Rx Instructions SUBCUT BID #90 11/17/18 01/11/19 Rx 100 unit/mL (3 mL) subcutaneous pen ml levothyroxine 25 mcg tablet 25 mcg PO QAM #90 tab 11/17/18 01/11/19 Rx Allergies Allergy/AdvReac Type Severity Reaction Status Date / Time codeine [CODEINE] Allergy Unknown VOMITING Verified 12/21/18 17:26 hydromorphone [From DILAUDID] Allergy Unknown I DON'T Verified 12/21/18 17:26 WAKE UP meperidine [From DEMEROL] Allergy Unknown VOMITING Verified 12/21/18 17:26 Penicillins [PENICILLINS] Allergy Unknown THROAT Verified 12/21/18 17:26 CLOSES Review of Systems Review of Systems All systems reviewed & are unremarkable except as noted in HPI and below Exam Vital Signs (past 8 hours): - 01/11/19 01:00 01/11/19 01:05 01/11/19 01:16 Temperature 97.9 F Pulse Rate 87 88 89 Respiratory Rate 17 18 20 Blood Pressure 194/100 H Blood Pressure [Left Arm] 195/84 H 194/100 H Pulse Oximetry 94 93 95 01/11/19 02:00 01/11/19 02:49 01/11/19 03:11 Temperature Pulse Rate 87 89 91 H Respiratory Rate 16 19 Blood Pressure Blood Pressure [Left Arm] 185/94 H 187/100 H 203/91 H Pulse Oximetry 94 95 01/11/19 03:25 Temperature Pulse Rate 82 Respiratory Rate Blood Pressure Blood Pressure [Left Arm] 153/78 H Pulse Oximetry Oxygen Delivery Method Room Air Narrative Exam Narrative: GENERAL APPEARANCE: well developed, overweight, in mild discomfort HEAD: Normocephalic, atraumatic, no scalp lesions. EYES: No ptosis, pupils equal, round, reactive to light and accommodation, sclera non-icteric, extraocular movement intact without nystagmus. EARS: normal external structures, no ear pain NOSE: sinuses non tender to percussion, no rhinorrhea ORAL CAVITY: mucosa moist without lesions or exudate, patient is edentulous, palate normal, tongue in midline. THROAT: normal, no erythema, no exudate, pharynx normal, uvula midline. NECK/THYROID: neck supple, no jugular venous distention, no carotid bruit appreciated, no thyromegaly, trachea midline. LYMPH NODES: no cervical or supraclavicular lymphadenopathy. SKIN: warm and dry, no suspicious lesions, no rashes, good turgor. HEART: regular rate and rhythm, S1-S2 without murmur, no rubs or gallops, brisk capillary refill, no edema LUNGS: Breath sounds diminished but clear to auscultation bilaterally, no coarseness crackles or wheezing, no cough present CHEST: Symmetrical movement, no accessory muscle use, no pain to AP and lateral compression. ABDOMEN: Soft, no distention, no epigastric or abdominal tenderness on palpation, no guarding or peritoneal signs, no organomegaly, no flank or suprapubic tenderness, active bowel tones. BACK: Hunched posture, nontender to palpation, no CVA tenderness on percussion EXTREMITIES: moves all extremities, strength is 5/5 and symmetrical, well perfused. NEUROLOGIC: AAO x4, NIH Scale 1- right arm drift, cranial nerves II-XII grossly intact , upper and lower extremity strength slightly unequal left greater than right, decreased sensation bilateral feet, hearing grossly normal to speech. PSYCH: alert, cognitive function intact, fair eye contact, stable mood Objective Labs Result Diagrams: 01/11/19 01:30 01/11/19 01:30 Labs: Laboratory Results - last 24 hr 01/11/19 01/11/19 01/11/19 01:30 01:30 01:30 WBC 7.6 RBC 5.00 Hgb 12.9 Hct 39.7 MCV 79.4 L MCH 25.8 L MCHC 32.5 RDW 15.9 H Plt Count 227 Neut % (Auto) 57.4 Lymph % (Auto) 34.1 Placer % (Auto) 4.5 Eos % (Auto) 3.0 Baso % (Auto) 1.0 Neut # (Auto) 4400 Lymph # (Auto) 2600 Placer # (Auto) 300 Eos # (Auto) 200 Baso # (Auto) 100 PT 13.0 H INR 1.1 APTT 32 Sodium Potassium Chloride Carbon Dioxide BUN Creatinine Estimated GFR BUN/Creatinine Ratio Glucose Calcium Troponin I 0.073 H 01/11/19 01:30 WBC RBC Hgb Hct MCV MCH MCHC RDW Plt Count Neut % (Auto) Lymph % (Auto) Placer % (Auto) Eos % (Auto) Baso % (Auto) Neut # (Auto) Lymph # (Auto) Placer # (Auto) Eos # (Auto) Baso # (Auto) PT INR APTT Sodium 141 Potassium 3.9 Chloride 104 Carbon Dioxide 29 BUN 9 Creatinine 1.00 Estimated GFR 55.6 L BUN/Creatinine Ratio 9.0 Glucose 151 H Calcium 8.1 L Troponin I Assessment & Plan Assessment & Plan narrative: The patient is admitted to the hospital for further evaluation and monitoring related to TIA symptoms and persistent right arm drift with history of multiple neurological events. 1. Acute Transitory ischemic attack, present on admission -patient with onset of symptoms at 9:30 p.m. with headache, confusion and numbness and tingling of the right face and right hand. -patient with left CVA 5 years ago right CVA 2 years ago and TIA 3 weeks ago. -patient has risk factors of hypertension, hyperlipidemia, diabetes and current smoker. -ABCD2 score is 7, NIH score is 1 for persistent right arm drift, headache persists though improved, numbness and tingling have resolved. -CT scan findings possible acute nonhemorrhagic stroke tip of temporal lobe, CTA finds no acute intracranial pathology however notes mild right internal carotid artery and mild left internal carotid artery stenosis and 50-69% proximal cervical right internal carotid artery stenosis. -will obtain MR stroke -limited echocardiogram, patient had echocardiogram completed 09/22/2018 which found an EF of 65-70% with no significant structural abnormalities. -add aspirin 81 mg daily -will increase atorvastatin from 20 mg to 40 mg. -continue Plavix 75 mg daily 2. Chronic Hypertension, active -patient hypertensive on arrival in the ER 195/84, upon arrival to the floor 166/71. -patient with continuing mild headache. -at this time will allow permissive hypertension until completion of the MRI -labetalol 100 mg as needed for blood pressure greater than 190 systolic. 3. Diabetes, type 2, insulin-dependent, active -patient with blood sugar of 151 on laboratory analysis in the ER. -patient with bilateral neuropathy of the feet. -patient uses Humulin NPH, twice Daily, patient does not recall dose. -will obtain fingersticks blood sugars AC and HS -correctional insulin medium scale. -will obtain hemoglobin A1c to ascertain level of good control. 4. Hyperlipidemia, active -patient has been on atorvastatin 20 mg daily at bedtime, will increase atorvastatin to 40 mg daily. -obtain lipid panel. 5. Acquired hypothyroidism, active -continue levothyroxine 225 mg daily. -will obtain TSH. 6. Current smoker -teaching provided regarding the impact of smoking in relation to her recurrent neurological events, hypertension and risks of cardiovascular disease. -patient is aware of complications of smoking and has no interest in quitting. -10 minutes spent discussing smoking cessation. The patient is admitted to the hospital related to the severity of her symptoms and risk for complications. She will be admitted as observation with expected length of stay to be less than 2 midnights. Time Spent With Patient Time with patient: 25 - 35 minutes Scores GCS [place] coma scale eye opening: Spontaneous [place] coma scale verbal response: Orientated [place] coma scale motor response: Obey commands Sonia coma scale total score: 15 ABCD2 Age >= 60 years: yes Initial BP. Either SBP >= 140 or DBP >= 90.: yes Clinical features of the TIA: unilateral weakness Duration of symptoms: >= 60 minutes History of diabetes: yes ABCD2 Score: 7 NIHSS Level of Conciousness: Alert, keenly responsive Ask month/age: Answers both questions correctly. Open/close eyes, close hand: Performs both tasks correctly Best gaze horizontal: Normal Visual delgadillo: No visual loss Facial palsy: Normal symetrical movement Left arm drift: No drift for full 10 sec Right arm drift: Drifts down, not to bed Left leg drift: No drift for full 10 sec Right leg drift: No drift for full 10 sec Limb ataxia: Absent (Complicated by residual right hemiparesis from prior CVA) Sensory on face/arms/legs: Normal, no sensory loss Best language: No aphasia, normal Dysarthria: Normal Extinction or inattention: No abnormality Total NIH Stroke scale score: 1
--- NOTE | 2019-01-11 04:23 | PC.NURSE ---
Normal saline to continue in acute care
[2019-01-11 05:03] LABS: Urine Amphetamines Negative (Negative); Urine Barbiturates Negative (Negative); Urine Benzodiazepines Negative (Negative); Urine Cocaine Negative (Negative); Urine MDMA Negative (Negative); Urine Methadone Negative (Negative); Urine Methamphetamines Negative (Negative); Urine Morphine/Opi cutoff 2000 Negative (Negative); Urine Oxycodone Negative (Negative); Urine Phencyclidine Negative (Negative); Urine Tetrahydrocannabinol Negative (Negative); Urine Tricyclic Antidepressant Negative (Negative)
--- NOTE | 2019-01-11 05:18 | PC.NURSE ---
0430- Pt admit from ED for observation/possible stroke. Was experiencing numbness/weakness in R arm & severe TIM 9hx of migraines). See MD notes for CT w/ contrast details. NS running as ordered into R forearm. NIH of 1, moving 1PA to bathroom w/ help steadying. Allowing permissive HTN anything below 190 SBP okay. Cont SpO2 in place on RA 0500- Diet ordered & urine sample collected. Pt denies any needs, BA on
[2019-01-11 06:19] LABS: Hemoglobin A1C% w Est Avg Glu 8.9 % (4.0-6.0)
[2019-01-11 06:22] LABS: Cholesterol 117 mg/dL (140-199); HDL Cholesterol 30 mg/dL (40-60); LDL Cholesterol Calculated 47 mg/dL (<100); Triglycerides 202 mg/dL (35-150)
[2019-01-11] MEDS: LORazepam 1 MG TABLET PO (06:47)
[2019-01-11 07:04] LABS: TSH w/ Reflex to FT4 0.83 uIU/mL (0.47-4.68)
--- NOTE | 2019-01-11 07:30 | PC.NURSE ---
Addendum entered by Rich Grajeda R.N. 01/11/19 09:42: echo completed. patient drowsy from ativan given just prior to start of day shift in prep for mri. Addendum entered by Rich Grajeda R.N. 01/11/19 07:59: patient is back from study. apparently wasn't able to complete study of carotids. Original Note: PATIENT LEFT BY FOR MRI AT 0715. TELE OFF AND IV SL'D FOR STUDY. 1P ASSIST TO BR TO VOID JUST PRIOR TO LEAVING FOR STUDY.
--- NOTE | 2019-01-11 08:00 | PT.IPTN ---
Physical Therapy Treatment Note Notes Pt quite drowsy, not appropriate to participate in therapy for mobility assessment right now, will attempt later in the day.
[2019-01-11] MEDS: LEVOTHYROXINE 100 MCG TABLET 200 MCG PO (08:23)
[2019-01-11] MEDS: LEVOTHYROXINE 25 MCG TABLET PO (08:23)
[2019-01-11] MEDS: ENOXAPARIN 40 MG/0.4 ML SYRINGE SUBCUT (08:24)
[2019-01-11] MEDS: ASPIRIN EC 81 MG TABLET PO (08:24)
[2019-01-11] MEDS: PARoxetine 10 MG TABLET 30 MG PO (08:25)
[2019-01-11] MEDS: GABAPENTIN 300 MG CAPSULE PO ×3 (08:25→21:14)
[2019-01-11] MEDS: INSULIN ASPART 100 UNIT/ML INSULN PEN SUBCUT ×4 (08:25→21:12)
--- NOTE | 2019-01-11 11:27 | PC.NURSE ---
NOTIFIED PATIENT REMAINS VERY DROWSY THIS AM AFTER STUDIES COMPLETED. NOTIFIED SHE DID GET THE ATIVAN JUST PRIOR TO 0700 IN PREP FOR MRI, BUT AT THIS POINT FALLS ASLEEP MID SENTENCE AND HAS TROUBLE RESPONDING TO QUESTIONS RELATED TO SAME. STATES SHE IS JUST SLEEPY. HER VS REMAIN STABLE, SHE SATS MID 90%'S RA, DIPS TO 88% COMES RIGHT BACK UP, MAY HAVE SOME SLEEP APNEA? WITH MILD SNORING NOTED AT TIMES. THIS AM SHE TOLD ME THE MONTH, THE AND THAT IT WAS THURSDAY. NOW WHEN SHE WAKES UP SHE ASKS, WHAT DAY IS IT? ARE WE IN THE SAME YEAR? CONT PULSE OX PUT IN PLACE, CHECKED GLUCOSE LEVEL 136. REVIEWED STUDY RESULTS. SHE WILL CALL THE [employer]. CONTINUE TO MONITOR CLOSELY.
--- NOTE | 2019-01-11 11:54 | PT.IPTN ---
Physical Therapy Treatment Note Notes Pt quite drowsy, not appropriate to participate in therapy for mobility assessment right now, will attempt later in the day.
--- NOTE | 2019-01-11 12:01 | CM.DANOTE ---
DCP: Case received, EMR reviewed and checked on patient. She was sleeping, but updated white board in her room with DC planning ext. Was able to contact her on his cell phone, who was able to give information regarding patient's baseline health at home. DCP assessment/template, completed with information currently available. Patient is a 63 year old female who admitted early this morning to the care of the hospitalist team. PCP: Dr. Trejo. Payer: confirmed: [facility]. Patient came to hospital via family vehicle secondary to her concerns that she might be having a stroke. Patient has history of CVA, as well as some R. Hemiparesis. At this time, she is under observation having MRI done. Patient was sleeping, but was able to contact her , Chin. Her is at [facility] now, and expected to be there for a couple more weeks. He stated that their 17 year old grand daughter lives with them and helps them out. They also have a son and his family nearby that are supportive. Patient uses a cane for mostly outside use. Her and her both reside here in [place]. Family helps out with shopping, meals, etc. P: DCP to continue to follow closely. Pending test results. Will collaborate with physical therapy team as well. Kristan Verma RN/Program Mgr
--- NOTE | 2019-01-11 15:00 | PT.IPTN ---
Physical Therapy Treatment Note Notes Pt still extremely groggy/ sleepy, difficulty to arouse, no appropriate to participate in PT today. Will try again tomorrow.
--- NOTE | 2019-01-11 15:02 | OT.IP.TRT ---
Occupational Therapy Treatment Note M3 OT- IP Subjective and Pain Start: 01/11/19 15:01 Freq: Status: Active Protocol: Document 01/11/19 14:30 [facility] (Rec: 01/11/19 15:02 [facility] [id number]) OT- Subjective Occupational Therapy Visit Type Notes Pt sleeping soundly and not able to awaken, therefore to check on pt tomorrow for OT eval.
--- NOTE | 2019-01-11 15:03 | OT.IP.TRT ---
Occupational Therapy Treatment Note M3 OT- IP Subjective and Pain Start: 01/11/19 15:01 Freq: Status: Active Protocol: Document 01/11/19 14:30 [facility] (Rec: 01/11/19 15:02 [facility] [id number]) OT- Subjective Occupational Therapy Visit Type Notes Pt asleep soundly and difficult to awaken, therefore to check on pt tomorrow for OT eval.
--- NOTE | 2019-01-11 20:12 | P.PN_ITS ---
Subjective Date Patient Seen: 01/11/19 Interval history: Melida Abbott is a 63-year-old female patient with a past medical history significant for previous CVA with residual right hemiparesis (2013), hypertensio n, hyperlipidemia, diabetes mellitus type 2, insulin using, poorly controlled with neuropathy, hypothyroidism and depression who presented to the ED with complaints of right face and right hand numbness and tingling. The patient is lying in bed comfortably. She is rather somnolent likely due to Ativan she received for MRI but easily arousable. She reports her symptoms have resolved and not returned. Discussed echocardiogram which demonstrated a left ventricular thrombus for which Cardiology was discussed with her epic cupid analyst Dr. Moore who recommended starting a NOAC and repeating echocardiogram in 2 months. CTA head and neck demonstrated 70-80% high-grade stenosis at the right ICA origin and discussed with her previous vascular surgery group at [place] at the recommendation of Dr. Moore. Dr. León does not believe her symptoms were related to ICA stenosis as her symptoms were right-sided, however, she previously had left-sided symptoms 3 weeks ago for which she was not seen and he recommend she follow up in the next 1 week. Exam Vital Signs (past 8 hours): - 01/11/19 15:48 01/11/19 19:50 Temperature 98.6 F 98.0 F Pulse Rate 71 90 Respiratory Rate 20 18 Blood Pressure 145/86 H 137/79 Pulse Oximetry 95 97 Oxygen Delivery Method Room Air Narrative Exam Narrative: General: Elderly female sitting in bed and in no acute distress, well- developed, well-nourished, somnolent but easily arousable and appropriately interactive. HEENT: Normocephalic, atraumatic. External ears without defect. Pupils equal, round, and reactive to light. Anicteric sclerae, moist conjunctivae, and no lid lag. Poor dentition. Neck: Supple with full range of motion. Slight bruit on right. Large scar on left neck. No lymphadenopathy or thyromegaly. Cardiovascular: Regular rate and rhythm without murmurs, rubs, or gallops appreciated. Pulmonary: Clear to auscultation bilaterally without crackles, wheezes, or rhonchi. Normal respiratory effort with no use of accessory muscles. Abdomen: Soft, obese, bowel sounds present, nontender, nondistended. No hepatosplenomegaly or masses appreciated. Extremities: No clubbing, cyanosis, or edema. Skin: Normal temperature, turgor, and texture; no rash, ulcers, or subcutaneous nodules appreciated. Neurological: Cranial nerves grossly intact. Mild right-sided lower extremity weakness +4/5. Psychiatric: Depressed mood and flat affect. Alert and oriented to person, place, and time. Objective Labs Result Diagrams: 01/11/19 01:30 01/11/19 01:30 Labs: Laboratory Results - last 24 hr 01/11/19 01/11/19 01/11/19 01:30 01:30 01:30 WBC 7.6 RBC 5.00 Hgb 12.9 Hct 39.7 MCV 79.4 L MCH 25.8 L MCHC 32.5 RDW 15.9 H Plt Count 227 Neut % (Auto) 57.4 Lymph % (Auto) 34.1 [place] % (Auto) 4.5 Eos % (Auto) 3.0 Baso % (Auto) 1.0 Neut # (Auto) 4400 Lymph # (Auto) 2600 [place] # (Auto) 300 Eos # (Auto) 200 Baso # (Auto) 100 PT 13.0 H INR 1.1 APTT 32 Sodium Potassium Chloride Carbon Dioxide BUN Creatinine Estimated GFR BUN/Creatinine Ratio Glucose Hemoglobin A1c Calcium Troponin I 0.073 H Triglycerides Cholesterol LDL Cholesterol, Calc HDL Cholesterol TSH Urine Opiates Screen Ur Oxycodone Screen Urine Methadone Screen Ur Barbiturates Screen U Tricyclic Antidepress Ur Phencyclidine Scrn Ur Amphetamines Screen U Methamphetamines Scrn Ur MDMA Scrn (Ecstasy) U Benzodiazepines Scrn Urine Cocaine Screen U Marijuana (THC) Screen 01/11/19 01/11/19 01/11/19 01:30 04:50 05:54 WBC RBC Hgb Hct MCV MCH MCHC RDW Plt Count Neut % (Auto) Lymph % (Auto) [place] % (Auto) Eos % (Auto) Baso % (Auto) Neut # (Auto) Lymph # (Auto) [place] # (Auto) Eos # (Auto) Baso # (Auto) PT INR APTT Sodium 141 Potassium 3.9 Chloride 104 Carbon Dioxide 29 BUN 9 Creatinine 1.00 Estimated GFR 55.6 L BUN/Creatinine Ratio 9.0 Glucose 151 H Hemoglobin A1c Calcium 8.1 L Troponin I Triglycerides 202 H Cholesterol 117 L LDL Cholesterol, Calc 47 HDL Cholesterol 30 L TSH Urine Opiates Screen Negative Ur Oxycodone Screen Negative Urine Methadone Screen Negative Ur Barbiturates Screen Negative U Tricyclic Antidepress Negative Ur Phencyclidine Scrn Negative Ur Amphetamines Screen Negative U Methamphetamines Scrn Negative Ur MDMA Scrn (Ecstasy) Negative U Benzodiazepines Scrn Negative Urine Cocaine Screen Negative U Marijuana (THC) Screen Negative 01/11/19 01/11/19 05:54 05:54 WBC RBC Hgb Hct MCV MCH MCHC RDW Plt Count Neut % (Auto) Lymph % (Auto) [place] % (Auto) Eos % (Auto) Baso % (Auto) Neut # (Auto) Lymph # (Auto) [place] # (Auto) Eos # (Auto) Baso # (Auto) PT INR APTT Sodium Potassium Chloride Carbon Dioxide BUN Creatinine Estimated GFR BUN/Creatinine Ratio Glucose Hemoglobin A1c 8.9 H Calcium Troponin I Triglycerides Cholesterol LDL Cholesterol, Calc HDL Cholesterol TSH 0.83 Urine Opiates Screen Ur Oxycodone Screen Urine Methadone Screen Ur Barbiturates Screen U Tricyclic Antidepress Ur Phencyclidine Scrn Ur Amphetamines Screen U Methamphetamines Scrn Ur MDMA Scrn (Ecstasy) U Benzodiazepines Scrn Urine Cocaine Screen U Marijuana (THC) Screen Assessment & Plan Assessment & Plan narrative: Melida Abbott is a 63-year-old female patient with a past medical history significant for previous CVA with residual right hemiparesis (2013), hypertension, hyperlipidemia, diabetes mellitus type 2, insulin using, poorly controlled with neuropathy, hypothyroidism and depression who presented to the ED with complaints of right face and right hand numbness and tingling. 1. Acute transitory ischemic attack, present on admission. Resolved. -Patient presented for headache, confusion and numbness and tingling of the right face and right hand that resolved prior to admission. -History of left CVA 5 years ago right CVA 2 years ago and left-sided TIA 3 weeks ago and did not seek medical care. -Cardiovascular risk factors: Hypertension, hyperlipidemia, Diabetes mellitus type II poorly controlled and current smoker. -ABCD2 score is 7, NIH score is 1 for persistent right arm drift. -CT brain without contrast demonstrated possible acute non-hemorrhagic stroke of temporal lobe. CTA brain demonstrated no acute intracranial disease process, large vessel occlusion, vascular dissection or aneurysm. High-grade, proximal the 70-80% stenosis of the origin of the right internal carotid artery.Origin of the left internal artery is fully patent. Status post left internal carotid endarterectomy. -MR stroke protocol demonstrated no acute process or recent infarct. Mild volume loss and small vessel ischemic disease. Mild sinus disease. Bilateral anterior and posterior circulation stenosis. -Limited echocardiogram demonstrated apical hypokinesis new since prior study with echogenic structure noted in the apex of the left ventricle not visualized previously and measuring at approximately 1x 1 cm. 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 No interatrial shunt. -Continue frequent neuro checks. -Ordered physical and occupational therapy evaluation and treatment, pending. -Risk stratified: Fasting lipid panel demonstrated: Total cholesterol 117, triglycerides 202, LDL 47, HDL 30 and hemoglobin A1c 8.9% indicative of poor glycemic control. Highly encouraged smoking cessation and indefinite abstinence. -Increased atorvastatin from 20 mg to 40 mg. -Continue Plavix 75 mg daily. Discontinued aspirin. Started on NOAC for left ventricular thrombus which may be embolic source for TIAs. 2. Left ventricular thrombus, present on admission. Active. -Possible embolic source of TIA. -Started NOAC. -Discussed case with epic cupid analyst, Dr. Moore, who recommends repeat echocardiogram in 2 months to assess resolution of left ventricular thrombus. -Discussed right ICA high-grade stenosis with vascular surgeons, Dr. León, at [place] who requested images be pushed and recommended close follow-up in the next 1 week. 3. Hypertension, chronic, present on admission. Stable. -Patient hypertensive on arrival in the ER 195/84, upon arrival to the floor 166/71. -Allowed for permissive hypertension until completion of the MR. -Ordered labetalol as needed for blood pressure greater than 190 systolic. -Patient blood pressure returned to normal pressures and recommend close outpa tient follow-up and assessment of BP. 3. Diabetes mellitus type 2, insulin using, present on admission. Stable. -Hemoglobin A1c 8.9% indicative of poor glycemic control. Patient has complication of bilateral neuropathy of the feet. -Continue home NPH. -Continue ACHS blood glucose checks and medium dose correctional scale insulin. -Continue carbohydrate consistent and heart healthy diet. 4. Hyperlipidemia, chronic, present on admission. Stable. -Fasting lipid panel as above. -Continue atorvastatin increased from 20 mg to 40 mg daily. 5. Hypothyroidism, chronic, present on admission. Stable. -TSH within normal limits at 0.83. -Continue levothyroxine 225 mg daily. 6. Current active smoker, chronic, present on admission. Stable. -Teaching provided regarding the impact of smoking in relation to her recurrent neurological events, hypertension and risks of cardiovascular disease. Patient is aware of complications of smoking and has no interest in quitting. -Highly encouraged smoking cessation and indefinite abstinence. Disposition: Likely to discharge tomorrow once evaluated by physical and occupational therapies and safe discharge plan in place.
[2019-01-11] MEDS: NICOTINE 21 MG PATCH TOP (21:12)
[2019-01-11] MEDS: ATORVASTATIN 20 MG TABLET 40 MG PO (21:13)
[2019-01-11] MEDS: CLOPIDOGREL 75 MG TABLET PO (21:14)
[2019-01-11] MEDS: DABIGATRAN 75 MG CAPSULE 150 MG PO (21:14)
[2019-01-12] MEDS: MAG HYDROX/ALUM/SIMETH 30 ML UDC PO (00:20)
[2019-01-12] MEDS: LEVOTHYROXINE 100 MCG TABLET 200 MCG PO (05:45)
[2019-01-12] MEDS: LABETALOL 100 MG TABLET PO (05:46)
[2019-01-12] MEDS: LEVOTHYROXINE 25 MCG TABLET PO (05:46)
[2019-01-12 05:51] VITALS: BP 190/94; PULSE 83; RESP 16; TEMP 36.6; O2SAT 92
[2019-01-12] MEDS: CALCIUM CARBONATE 500 MG TAB 1000 MG PO (05:55)
[2019-01-12] MEDS: PANTOPRAZOLE 20 MG TABLET PO (06:57)
[2019-01-12 07:02] VITALS: BP 145/75; PULSE 78
--- NOTE | 2019-01-12 07:52 | PM.DS.1 ---
History of Present Illness Date Patient Seen: 01/11/19 Chief complaint: states having a stroke Narrative: Written by Timothy WHYTE: Melida Abbott is a 63-year-old female patient with a history of prior CVA with residual right hemiparesis, hypertension, diabetes, neuropathy, hypothyroidism and depression who presents to the ER with complaints of right face and right hand numbness and tingling. The patient states that she had an onset of symptoms approximately 9:30 p.m. with a associated sudden onset headache and confusion. She reports no nausea vomiting, visual changes or diaphoresis. She reports left-sided CVA 5 years ago with persistent right lower lobe extremity weakness for which she uses a cane for ambulation. She reports another episode occurring 2 years ago with right-sided symptoms and again 3 weeks ago she experienced transitory symptoms on the left face and hand which spontaneously resolved. She reports no prodromal symptoms and has had no recent illness and denies fevers or chills, nasal congestion or sore throat. She reports no chest pain or palpitations, shortness of breath cough or wheezing. She denies abdominal pain nausea vomiting and has no constipation or diarrhea. Upon arrival in the emergency department the patient was found to be afebrile with a heart rate of 87, hypertensive at 195/84, respirations 17 and 94% on room air. The patient subsequently had pressure elevated up to 203/91. The patient had head CT which per the night Radiology Service finds possible acute nonhemorrhagic infarct in the left temporal tip. Neurology was consulted and a CTA was obtained which finds no acute intracranial pathology including mass hemorrhage or evidence of acute infarction. Does note moderate 50-69% arterials stenosis of the right internal carotid and mild, less than 50%, right internal carotid artery. NIH score in the ER was 1 for persistent right arm drift. On laboratory analysis the patient has a normal CBC however she has microcytic hypochromic RBCs. Her chemistry results are with also within normal limits except for blood sugar of 151. She has elevated PT at 13.0 and INR 1.1. Tele neurology was again consulted following obtaining the CTA with recommendation for continued workup for TIA. Discharge Providers Date of admission: 01/11/19 03:55 Discharge Date: 01/12/19 Primary care physician: Dasha Trejo DO Consults: 01/11/19 04:12 Consult to Occupational Therapy Evaluate & Treat Comment: CVA, residual right kala, new TIA Physician Instructions: Evaluate and treat Consult to Physical Therapy Evaluate & Treat Comment: CVA, residual right kala, new TIA Physician Instructions: Evaluate and Treat 01/12/19 14:31 Consult to Home Health Routine Comment: Reason For Exam: home health RN/OT/PT at d/c Discharge provider: Sun Weiss DO Summary Discharge Diagnosis: 1. Acute transitory ischemic attack, present on admission. Resolved. 2. Left ventricular thrombus, present on admission. Active. 3. Hypertension, chronic, present on admission. Stable. 4. Diabetes mellitus type 2, insulin using, present on admission. Stable. 5. Hyperlipidemia, chronic, present on admission. Stable. 6. Hypothyroidism, chronic, present on admission. Stable. 7. Current active smoker, chronic, present on admission. Stable. Hospital Course: Melida Abbott is a 63-year-old female patient with a past medical history significant for previous CVA with residual right hemiparesis (2013), hypertension, hyperlipidemia, diabetes mellitus type 2, insulin using, poorly controlled with neuropathy, hypothyroidism and depression who presented to the ED with complaints of right face and right hand numbness and tingling. 1. Acute transitory ischemic attack, present on admission. Resolved. -Patient presented for headache, confusion and numbness and tingling of the right face and right hand that resolved prior to admission. -History of left CVA 5 years ago right CVA 2 years ago and left-sided TIA 3 weeks ago and did not seek medical care. -Cardiovascular risk factors: Hypertension, hyperlipidemia, Diabetes mellitus type II poorly controlled and current smoker. -ABCD2 score is 7, NIH score is 1 for persistent right arm drift. -CT brain without contrast demonstrated possible acute non-hemorrhagic stroke of temporal lobe. CTA brain demonstrated no acute intracranial disease process, large vessel occlusion, vascular dissection or aneurysm. High-grade, proximal the 70-80% stenosis of the origin of the right internal carotid artery.Origin of the left internal artery is fully patent. Status post left internal carotid endarterectomy. -MR stroke protocol demonstrated no acute process or recent infarct. Mild volume loss and small vessel ischemic disease. Mild sinus disease. Bilateral anterior and posterior circulation stenosis. -Limited echocardiogram demonstrated apical hypokinesis new since prior study with echogenic structure noted in the apex of the left ventricle not visualized previously and measuring at approximately 1x 1 cm. 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 No interatrial shunt. -Continued frequent neuro checks. -Continued physical and occupational therapy evaluation and treatment who recommended home with home health. -Risk stratified: Fasting lipid panel demonstrated: Total cholesterol 117, triglycerides 202, LDL 47, HDL 30 and hemoglobin A1c 8.9% indicative of poor glycemic control. Highly encouraged smoking cessation and indefinite abstinence. -Increased atorvastatin from 20 mg to 40 mg. -Continued Plavix 75 mg daily. Discontinued aspirin. Started on Pradaxa 150 mg twice daily for left ventricular thrombus which may be embolic source for TIAs. 2. Left ventricular thrombus, present on admission. Active. -Possible embolic source of TIA. -Started Pradaxa 150 mg twice daily -Discussed case with cloth measurer, Dr. Moore, who recommends repeat echocardiogram in 2 months to assess resolution of left ventricular thrombus. -Discussed right ICA high-grade stenosis with vascular surgeons, Dr. León, at [place] who requested images be pushed and recommended close follow-up for which patient scheduled for tomorrow 01/13. 3. Hypertension, chronic, present on admission. Stable. -Patient hypertensive on arrival in the ER 195/84, upon arrival to the floor 166/71. -Allowed for permissive hypertension until completion of the MR. -Ordered labetalol as needed for blood pressure greater than 190 systolic. -Patient blood pressure returned to normal pressures and recommend close outpatient follow-up and assessment of BP. 4. Diabetes mellitus type 2, insulin using, present on admission. Stable. -Hemoglobin A1c 8.9% indicative of poor glycemic control. Patient has complication of bilateral neuropathy of the feet. -Continued home NPH. -Continued ACHS blood glucose checks and medium dose correctional scale insulin. -Continued carbohydrate consistent and heart healthy diet. 5. Hyperlipidemia, chronic, present on admission. Stable. -Fasting lipid panel as above. -Continued atorvastatin increased from 20 mg to 40 mg daily. 6. Hypothyroidism, chronic, present on admission. Stable. -TSH within normal limits at 0.83. -Continued levothyroxine 225 mg daily. 7. Current active smoker, chronic, present on admission. Stable. -Teaching provided regarding the impact of smoking in relation to her recurrent neurological events, hypertension and risks of cardiovascular disease. Patient is aware of complications of smoking and has no interest in quitting. -Highly encouraged smoking cessation and indefinite abstinence. Status at Discharge Functional status at discharge: uses cane/walker Overall status at discharge: patient is back to baseline Exam Vital Signs (past 8 hours): Oxygen Delivery Method Room Air Oxygen Flow Rate 0 Narrative Exam Narrative: General: Elderly female sitting in bed and in no acute distress, well-developed, well-nourished, appropriately interactive. HEENT: Normocephalic, atraumatic. External ears without defect. Pupils equal, round, and reactive to light. Anicteric sclerae, moist conjunctivae, and no lid lag. Poor dentition. Neck: Supple with full range of motion. Slight bruit on right. Large scar on left neck. No lymphadenopathy or thyromegaly. Cardiovascular: Regular rate and rhythm without murmurs, rubs, or gallops appreciated. Pulmonary: Clear to auscultation bilaterally without crackles, wheezes, or rhonchi. Normal respiratory effort with no use of accessory muscles. Abdomen: Soft, obese, bowel sounds present, nontender, nondistended. No hepatosplenomegaly or masses appreciated. Extremities: No clubbing, cyanosis, or edema. Skin: Normal temperature, turgor, and texture; no rash, ulcers, or subcutaneous nodules appreciated. Neurological: Cranial nerves grossly intact. Mild right-sided lower extremity weakness +4/5. Psychiatric: Depressed mood and flat affect. Alert and oriented to person, place, and time. Objective Labs Result Diagrams: 01/11/19 01:30 01/11/19 01:30 Discharge Plan Discharge Plan Patient Disposition: Home Health Service Discharge comment: You are being discharged home with home health for PT/OT. You have been started on Pradaxa 150 mg twice daily to prevent blood clots. Please follow up at your scheduled appointment tomorrow with Dr. Sexton regarding your TIA's and carotid artery stenosis to discuss possible need for intervention. You need to follow-up with your cloth measurer Dr. Moore at your scheduled appointment to repeat echocardiogram. Please follow-up with your PCP, Dr. Trejo, at your scheduled appointment regarding your hospitalization. Discharge Med Rec/Prescriptions Prescriptions: New nicotine 21 mg/24 hr Patch 24 Hour 21 mg topical DAILY Qty: 1 RF: 0 Pradaxa 75 mg Capsule 150 mg PO BID Qty: 60 RF: 0 Continued Glucose: Test Strips .Route .MEDSUPPLY Qty: 1 RF: 0 Lancets .Route .MEDSUPPLY Qty: 1 RF: 0 levothyroxine 200 mcg tablet 200 mcg PO QAM Qty: 90 RF: 2 gabapentin [Neurontin] 300 mg capsule 300 mg PO TID Qty: 270 RF: 1 clopidogrel 75 mg tablet 75 mg PO HS Qty: 90 RF: 1 pneumoc 13-mark conj-dip cr(PF) [Prevnar 13 (PF)] 0.5 mL syringe 0.5 ml IM ONCE Qty: 0.5 RF: 0 adjuvant AS01B (PF)vial 1 of 2 [Shingrix Adjuvant Component-PF] suspension 0.5 ml IM ONCE Qty: 0.5 RF: 0 paroxetine HCl [Paxil] 30 mg tablet 30 mg PO QAM Qty: 90 RF: 1 omeprazole 20 mg capsule,delayed release(DR/EC) 20 mg PO DAILY Qty: 90 RF: 0 levothyroxine 25 mcg tablet 25 mcg PO QAM Qty: 90 RF: 0 Humulin N NPH Insulin KwikPen 100 unit/mL (3 mL) insulin pen See Rx Instructions subcut BID Qty: 90 RF: 0 [place] .Route .MEDSUPPLY Qty: 100 RF: 0 Changed atorvastatin [Lipitor] 20 mg tablet 40 mg PO HS Qty: 90 RF: 1 Follow up/Referrals: Sen Sexton MD [Non-Staff] - 1 Day (01/13 at 1:30 with check-in time at 1:[address]. [address] [place] [address]) Tori Moore MD [Physician] - 03/15/19 3:10 pm (03/15 @ 3:[address] moore @ [facility] [place] [phone] (please check in 15minutes prior to your scheduled appointment ) Dasha Trejo DO [Primary Care Provider] - 01/21/19 1:10 pm (appt:01/21 @ 1:30 with a 1:10 check in at [address] [place] [address] trejo [phone] ) Provider Discharge Instructions Diet: Diet as Tolerated, Carb-consistent/Diabetic, Low-fat, Low-sodium and Low-cholesterol Activity: Activity as tolerated Visit Report/Discharge Packet Instructions: DI for Transient Ischemic Attack, D[place]ig[place]ran Discharge Data Primary Care Provider: Dasha Trejo Attending Provider: Timothy Guzman Admit Date/Time: 01/11/19 03:55 Discharges patient from system. Discharge Date/Time: 01/12/19 14:00
[2019-01-12 08:00] VITALS: BP 139/76; PULSE 72; RESP 16; TEMP 36.5; O2SAT 92
[2019-01-12] MEDS: DABIGATRAN 75 MG CAPSULE 150 MG PO (08:37)
[2019-01-12] MEDS: NICOTINE 21 MG PATCH TOP (08:38)
[2019-01-12] MEDS: PARoxetine 10 MG TABLET 30 MG PO (08:38)
[2019-01-12] MEDS: GABAPENTIN 300 MG CAPSULE PO (08:38)
[2019-01-12] MEDS: INSULIN ASPART 100 UNIT/ML INSULN PEN SUBCUT (08:38)
--- NOTE | 2019-01-12 09:40 | PT.IIE ---
Surgical History (Last Reviewed 01/11/19 @ 04:25 by PATO Renee) History of left-sided carotid endarterectomy (Resolved) History of partial colectomy (Resolved) Hx of cholecystectomy (Resolved) Hx of knee surgery (Resolved) Hx of surgical procedure (Resolved) Hx of surgical procedure (Resolved) History of tonsillectomy Status post appendectomy Medical History (Last Updated 01/11/19 @ 04:24 by PATO Renee) TIA (transient ischemic attack) (Acute) Cataracts, bilateral (Acute 2007) Carotid artery disease (Chronic 2013) Chronic back pain (Chronic) Depression (Chronic 1985) Diabetes (Chronic 2004) GERD (gastroesophageal reflux disease) (Chronic 1989) Generalized headaches (Chronic) Hyperlipidemia (Chronic) Hypothyroidism (Chronic) Migraines (Chronic) Peripheral vascular disease (Chronic 2012) Sleep apnea (Chronic) Vertigo (Chronic 2014) Chickenpox (Resolved 1957) Colitis (Resolved 1988) Dysplastic polyp of colon (Resolved ~2001) Fractures (Resolved) History of trigger finger (Resolved) Hyperthyroidism (Resolved 1993) Measles (Resolved 1956) Mumps (Resolved 1958) Plantar warts (Resolved) Stroke (Resolved 2013) Physical Therapy Inpatient Evaluation/Re-Eval M1 PT/OT-IP Prior Functional Status Start: 01/11/19 08:24 Freq: NEEDED Status: Active Protocol: Document 01/12/19 09:40 AB (Rec: 01/12/19 12:38 AB [id number]) Medical Review Prior Functional Status Medical History Reviewed Yes Communication able to make needs known Mobility and Gait pt staed that she is modified independent with all mobilities and ambulation without AD indoors but uses a SPC for outdoor mobility Social History Household Members spouse family Living Arrangements House Number of Floors (Floors) One Floor Number of Stairs To Enter/Railing? 3 steps to enter with R rail ascending Home Environment Standard Height Toilet Tub/Shower Employment Status Retired Additional Social History Comment pt sleeps on a power recliner M2 PT-IP Current Condition Start: 01/11/19 08:24 Freq: NEEDED Status: Active Protocol: Document 01/12/19 09:40 AB (Rec: 01/12/19 12:38 AB [id number]) Physical Therapy Current Condition Current Condition Evaluation Date 01/12/19 Treatment Diagnosis brain TIA; difficulty in walking Onset Date 01/11/19 M3 PT-IP Subjective Start: 05/21/19 08:24 Freq: NEEDED Status: Active Protocol: Document 01/12/19 09:40 AB (Rec: 01/12/19 12:38 AB [email or web address]) Subjective Physical Therapy Visit Type Type Initial Evaluation Visit Start Time 09:40 Visit Stop Time 10:13 Total Visit Minutes 33 Number of BOAT WORKER Visits 0 Physical Therapy Visit Comments Patient Comments i am tired M4 PT-IP Mobility and Gait Start: 01/11/19 08:24 Freq: NEEDED Status: Active Protocol: Document 01/12/19 09:40 AB (Rec: 01/12/19 12:38 AB [id number]) PT-Bed Mobility Assessment Supine to Sit Supine to Sit Standby Assistance PT-Transfer Assessment Sit to and From Stand Sit to and from Stand Contact Guard Assistance Equipment Transfer Assistive Device Gait Belt Front Wheeled Walker Transfers Transfer Destination Chair Transfer Technique Stand Step Pivot Transfer Ability Level of Assist Minimal Assistance Gait Assessment Gait Gait Assistance Required: Contact Guard Assist Minimum Assistance Distance (Feet) 75 Able to Maintain Weight Bearing Status Yes During Gait Assistive Devices Assistive Device Gait Belt Straight Cane Front Wheeled Walker Orthotic/Prosthetic Devices or Brace: No Gait Deviations General Gait Pattern Decreased Stride Length Decreased Feet Clearance Factors Limiting Gait Function Factors Limiting Gait Function Decreased Activity Tolerance Decreased Strength Poor Balance Comments Gait Comments pt completed ambulation using FWW ~ 40 ft CGA. Assessed ambulation using SPC and pt completed ~ 75 ft requiring CGA to min A. pt with unsteady gait and c/o feeling tired affecting mobility and safety. PT-Balance Assessment Sitting Balance and Reactions Static Sitting Balance Ability Good Dynamic Sitting Balance Ability Good Standing Balance and Reactions Static Standing Balance Ability Fair Dynamic Standing Balance Ability Fair Device Used SPC M5 PT-IP Objective Assessments Start: 01/11/19 08:24 Freq: NEEDED Status: Active Protocol: Document 01/12/19 09:40 AB (Rec: 01/12/19 12:38 AB [id number]) Orientation Orientation/Cognition Level of Alertness Alert Orientation Name Place Situation Safety Awareness Decreased Safety Awareness Gross Range of Motion Lower Extremity ROM Assessment Within Functional Limits Strength Lower Extremity Strength Assessment Right Impaired Comments Strength Comments RLE 4-/5 Sensation Assessment Sensation Gross Sensation WNL Muscle Tone Muscle Tone WNL Yes M6 PT-IP Treatment Start: 01/11/19 08:24 Freq: NEEDED Status: Active Protocol: Document 01/12/19 09:40 AB (Rec: 01/12/19 12:38 AB [id number]) Physical Therapy Treatment Education Education Provided Safety M7 PT-IP Assessment and Plan Start: 01/11/19 08:24 Freq: NEEDED Status: Active Protocol: Document 01/12/19 09:40 AB (Rec: 01/12/19 12:38 AB [id number]) PT Summary Assessment and Plan Potential Rehabilitation Potential Good Status of Condition at Evaluation Stable Summary Impairments Strength Balance Bed Mobility Transfers Gait Activity Tolerance Assessment Summary pt requiring CGA to min A with mobility using SPC. unable to tolerate much activity this morning with increase unsteadiness during ambulation with increase distance. pt plans to go home with her family to assist her. pt stated that she has can have 24/ supervision if needed. pt will benefit from outpt PT. Goals Bed Mobility Goal Independent Transfer Goal Independent Cane Gait Goal Independent Cane Gait Distance 150 Other Goals up/down 3 steps using R rail ascending SBA Days to Meet Goals 5 Frequency of Treatment Frequency Of Treatment Twice a Day Treatment Plan Physical Therapy Treatment Plan Bed Mobility Training Transfer Training Gait Training Therapeutic Exercise Balance Retraining Post Op Education Discharge Planning Hot or Cold Pack Neuromuscular Re-ed Coordination Retraining Manual Therapy Other Recommendations and Next Treatment ambulation using SPC; stair Focus climbing Recommendations To Nursing Amount of Assist Needed 1 Person Assist Discharge Recommendations PT Discharge Recommendations Home with 24/7 Assist Outpatient PT
--- NOTE | 2019-01-12 13:02 | OT.IP.EVAL ---
Past Medical History (Last Updated 01/11/19 @ 04:24 by PATO Renee) TIA (transient ischemic attack) (Acute) Cataracts, bilateral (Acute 2007) Carotid artery disease (Chronic 2013) Chronic back pain (Chronic) Depression (Chronic 1985) Diabetes (Chronic 2004) GERD (gastroesophageal reflux disease) (Chronic 1989) Generalized headaches (Chronic) Hyperlipidemia (Chronic) Hypothyroidism (Chronic) Migraines (Chronic) Peripheral vascular disease (Chronic 2012) Sleep apnea (Chronic) Vertigo (Chronic 2014) Chickenpox (Resolved 1957) Colitis (Resolved 1988) Dysplastic polyp of colon (Resolved ~2001) Fractures (Resolved) History of trigger finger (Resolved) Hyperthyroidism (Resolved 1993) Measles (Resolved 1956) Mumps (Resolved 1958) Plantar warts (Resolved) Stroke (Resolved 2013) Surgical History (Last Reviewed 01/11/19 @ 04:25 by PATO Renee) History of left-sided carotid endarterectomy (Resolved) History of partial colectomy (Resolved) Hx of cholecystectomy (Resolved) Hx of knee surgery (Resolved) Hx of surgical procedure (Resolved) Hx of surgical procedure (Resolved) History of tonsillectomy Status post appendectomy Occupational Therapy Inpatient Evaluation/Re-Eval M1 PT/OT-IP Prior Functional Status Start: 01/11/19 15:01 Freq: NEEDED Status: Active Protocol: Document 01/12/19 12:38 [facility] (Rec: 01/12/19 13:02 [facility] [id number]) Medical Review Prior Functional Status Medical History Reviewed Yes Communication able to make needs known Mobility and Gait pt staed that she is modified independent with all mobilities and ambulation without AD indoors but uses a SPC for outdoor mobility Social History Household Members spouse family Living Arrangements House Number of Floors (Floors) One Floor Number of Stairs To Enter/Railing? 3 steps to enter with R rail ascending Home Environment Standard Height Toilet Tub/Shower Employment Status Retired Additional Social History Comment pt sleeps on a power recliner M2 OT-IP Current Condition Start: 01/11/19 15:01 Freq: Status: Active Protocol: Document 01/12/19 12:38 [facility] (Rec: 01/12/19 13:02 [facility] [email or web address]) Occupational Therapy Current Condition Current Condition Evaluation Date 01/12/19 Treatment Diagnosis TIA, weakness Diagnosis Onset Date 01/11/19 M3 OT- IP Subjective and Pain Start: 01/11/19 15:01 Freq: Status: Active Protocol: Document 01/12/19 12:38 [facility] (Rec: 01/12/19 13:02 [facility] [email or web address]) OT- Subjective Occupational Therapy Visit Type Type Initial Evaluation Visit Start Time 11:45 Visit Stop Time 12:00 Total Visit Minutes 30 Notes Pt seen again after lunch 1215 -1230. Occupational Therapy Visit Comments Patient Comments Pt wanting to go home today. OT Pain Assessment Pain When Pain Assessed At Rest Pain Present Pain Present Denied Pain M4 OT- IP ADL's Start: 01/11/19 15:01 Freq: Status: Active Protocol: Document 01/12/19 12:38 [facility] (Rec: 01/12/19 13:02 [facility] [email or web address]) OT ADL-Dressing General Eval Upper Body Dressing Ability Standby Assistance Lower Body Dressing Ability Standby Assistance M5 OT- IP IADL's Start: 01/11/19 15:01 Freq: Status: Active Protocol: Document 01/12/19 12:38 [facility] (Rec: 01/12/19 13:02 [facility] [email or web address]) OT-Instrumental Activities of Daily Living Home Safety Awareness Ability to Problem Solve Emergency Able to Problem Solve Situations Meal Preparation Meal Preparation Caregiver Provides Assist Driving Driving Caregiver Provides Assist M6 OT- IP Functional Cognition Start: 01/11/19 15:01 Freq: Status: Active Protocol: Document 01/12/19 12:38 [facility] (Rec: 01/12/19 13:02 [facility] [email or web address]) Cognitive Factors Limiting Selfcare Function Cognitive Ability Level of Alertness Alert Patient Orientation Name Place Situation Attention Span Ability Capable of Focused Attention Ability to Follow Commands Able to Follow Multi-Step Commands Memory Description Short Term Impaired Safety Awareness Underestimates Need for Assistance Cognitive Comments Cognitive Assessment Comments Pt able to follow multiple commands and needs occasional vc for safety awareness. OT- Vision and Hearing OT- Hearing Assessment OT- Hearing Assessment WFL M7 OT- IP Mobility and Balance Start: 01/11/19 15:01 Freq: Status: Active Protocol: Document 01/12/19 12:38 [facility] (Rec: 01/12/19 13:02 [facility] [email or web address]) OT- Bed Mobility Assessment Supine to Sit Supine to Sit Assist Independent Sit to Supine Sit to Supine Assist Independent OT-Transfer Assessment Sit to and From Stand Sit to and from Stand Standby Assistance Transfers Transfer Ability Standby Assistance Technique Transfer Destination Bed Chair Devices Transfer Assistive Devices None Comments Mobility Comments Pt able to transfer to and from bed with no device, but has to hold to the armrest of the recliner and bed for steadying. OT- Gait Assessment Comments Gait Ability Comments Pt states has a 4WW at home and would be best to use at this time as pt has decreased endurance and activity tolerance. Pt feel that it is because that he had not been sleeping well here at the hospital. OT- Balance Assessment Sitting Balance and Reactions Static Sitting Balance Ability Normal Dynamic Sitting Balance Ability Normal Standing Balance and Reactions Static Standing Balance Ability Fair M8 OT- IP Objective Assessments Start: 01/11/19 15:01 Freq: Status: Active Protocol: Document 01/12/19 12:38 [facility] (Rec: 01/12/19 13:02 [facility] [email or web address]) OT Gross Range of Motion Upper Extremity Range of Motion Assessment Within Functional Limits OT Strength Comments Strength Comments RUE 4-/5, LUE 4/5 OT- Coordination Assessment Comments Coordination Comments Intact finger to thumb opposition. OT-Muscle Tone Assessment Muscle Tone WNL Yes OT Sensation Assessment Comments Summary Comments WFL for light touch, pt states right hand tingles but always has since prior CVA. M9 OT- IP Assessment and Plan Start: 01/11/19 15:01 Freq: Status: Active Protocol: Document 01/12/19 12:38 [facility] (Rec: 01/12/19 13:02 [facility] [email or web address]) OT Summary Assessment and Plan Potential Rehabilitation Potential Good Analytic Complexity at Evaluation Low Summary OT Impairments Strength Balance Functional Cognition Functional Mobility Bathing Shower Transfers Progress Towards Goals Progressing Toward Goals Assessment Summary Pt low complexity and main barrier is decreased strength, endurance, and activity tolerance and needing use of at least straight cane to get around with. Pt may benefit from outpt PT, defer to PT. Grooming Goal Independent Dressing Goal Independent Toileting Goal Independent Bathing Goal Minimal Assistance Toilet Transfer Goal Independent Shower Transfer Goal Minimal Assistance Patient/Caregiver Education Goal Caregiver Independent Assisting Patient Days to Meet Goals 2 Frequency of Treatment Frequency Of Treatment Once a Day Treatment Plan OT Treatment Plan ADL Training Functional Cognition Training Functional Mobility Patient/Family Education Discharge Planning Other Treatment Recommendations and Next Shower Treatment Focus Discharge Recommendations OT Discharge Recommendations Home with Assistance Outpatient PT Home Equipment Needs Shower chair and grab bar versus tub bench
--- NOTE | 2019-01-12 13:59 | PC.NURSE ---
Dischage: Feels ready for d/c home. Spoke with Dr. Weiss and given instructions by md. Reviewed d/c instructions for home. Had a previous stroke and has knowledge about disease process, when to call 911, facial droop, vision changes, ect. Information reinforced. MD sent rx elec. Questions answered. Spouse is currently at [facility], he called in to check on her progress and then spoke with her. son is driving pt home and grand dtr will be staying with her. Seen by PT/OT and given was given their instructions. D/c home w/out pt reporting any concerns.
--- NOTE | 2019-01-12 14:25 | CM.DPC ---
Addendum entered by Nicole Tavares LPN 01/12/19 14:41: Dr. Weiss has not yet completed her prog note of yesterday or the d/c summary. [facility] will fax the dc summary to [facility] tomorrow, once documentation is completed. Original Note: DCP: continued: Case received and spoke with Dr. Weiss this afternoon. She reported that she was discharging pt home and wished HH. Conferred with PT and OT who both recommended same. Went to room to check in with pt and found she had aleady left for home. Spoke with RN Zee Dickinson who said she did not know about the need for HH and also said that pt had left without her new medication scripts...she was following up with pt re this by phone. Spoke then with pt at her home. She agreed she is homebound. She does have a doctor's appt in [place] tomorrow so hopes the agency can see her Thursday. orders for RN/OT/PT are obtained. Dr. Weiss has signed Face/Face. agency choices: discussed: outcome: referral to [facility]: accepts for Sunday 01/14. [facility] is faxing the referral packet now.
--- NOTE | 2019-01-13 07:53 | P.DS_ITS ---
History of Present Illness Date Patient Seen: 01/11/19 Chief complaint: states having a stroke Narrative: Written by Timothy WHYTE: Melida Abbott is a 63-year-old female patient with a history of prior CVA with residual right hemiparesis, hypertension, diabetes, neuropathy, hypothyroidism and depression who presents to the ER with complaints of right face and right hand numbness and tingling. The patient states that she had an onset of symptoms approximately 9:30 p.m. with a associated sudden onset headache and confusion. She reports no nausea vomiting, visual changes or diaphoresis. She reports left-sided CVA 5 years ago with persistent right lower lobe extremity weakness for which she uses a cane for ambulation. She reports another episode occurring 2 years ago with right-sided symptoms and again 3 weeks ago she experienced transitory symptoms on the left face and hand which spontaneously resolved. She reports no prodromal symptoms and has had no recent illness and denies fevers or chills, nasal congestion or sore throat. She reports no chest pain or palpitations, shortness of breath cough or wheezing. She denies abdominal pain nausea vomiting and has no constipation or diarrhea. Upon arrival in the emergency department the patient was found to be afebrile wi th a heart rate of 87, hypertensive at 195/84, respirations 17 and 94% on room air. The patient subsequently had pressure elevated up to 203/91. The patient had head CT which per the night Radiology Service finds possible acute nonhemorrhagic infarct in the left temporal tip. Neurology was consulted and a CTA was obtained which finds no acute intracranial pathology including mass hemorrhage or evidence of acute infarction. Does note moderate 50-69% arterials stenosis of the right internal carotid and mild, less than 50%, right internal carotid artery. NIH score in the ER was 1 for persistent right arm drift. On laboratory analysis the patient has a normal CBC however she has microcytic hypochromic RBCs. Her chemistry results are with also within normal limits except for blood sugar of 151. She has elevated PT at 13.0 and INR 1.1. Tele neurology was again consulted following obtaining the CTA with recommendation for continued workup for TIA. Discharge Providers Date of admission: 01/11/19 03:55 Discharge Date: 01/12/19 Primary care physician: Dasha Trejo DO Consults: 01/11/19 04:12 Consult to Occupational Therapy Evaluate & Treat Comment: CVA, residual right kala, new TIA Physician Instructions: Evaluate and treat Consult to Physical Therapy Evaluate & Treat Comment: CVA, residual right kala, new TIA Physician Instructions: Evaluate and Treat 01/12/19 14:31 Consult to Home Health Routine Comment: Reason For Exam: home health RN/OT/PT at d/c Discharge provider: Sun Weiss DO Summary Discharge Diagnosis: 1. Acute transitory ischemic attack, present on admission. Resolved. 2. Left ventricular thrombus, present on admission. Active. 3. Hypertension, chronic, present on admission. Stable. 4. Diabetes mellitus type 2, insulin using, present on admission. Stable. 5. Hyperlipidemia, chronic, present on admission. Stable. 6. Hypothyroidism, chronic, present on admission. Stable. 7. Current active smoker, chronic, present on admission. Stable. Hospital Course: Melida Abbott is a 63-year-old female patient with a past medical history significant for previous CVA with residual right hemiparesis (2013), hypertension, hyperlipidemia, diabetes mellitus type 2, insulin using, poorly controlled with neuropathy, hypothyroidism and depression who presented to the ED with complaints of right face and right hand numbness and tingling. 1. Acute transitory ischemic attack, present on admission. Resolved. -Patient presented for headache, confusion and numbness and tingling of the right face and right hand that resolved prior to admission. -History of left CVA 5 years ago right CVA 2 years ago and left-sided TIA 3 weeks ago and did not seek medical care. -Cardiovascular risk factors: Hypertension, hyperlipidemia, Diabetes mellitus type II poorly controlled and current smoker. -ABCD2 score is 7, NIH score is 1 for persistent right arm drift. -CT brain without contrast demonstrated possible acute non-hemorrhagic stroke of temporal lobe. CTA brain demonstrated no acute intracranial disease process, large vessel occlusion, vascular dissection or aneurysm. High-grade, proximal the 70-80% stenosis of the origin of the right internal carotid artery.Origin of the left internal artery is fully patent. Status post left internal carotid endarterectomy. -MR stroke protocol demonstrated no acute process or recent infarct. Mild volume loss and small vessel ischemic disease. Mild sinus disease. Bilateral anterior and posterior circulation stenosis. -Limited echocardiogram demonstrated apical hypokinesis new since prior study with echogenic structure noted in the apex of the left ventricle not visualized previously and measuring at approximately 1x 1 cm. 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 No interatrial shunt. -Continued frequent neuro checks. -Continued physical and occupational therapy evaluation and treatment who recommended home with home health. -Risk stratified: Fasting lipid panel demonstrated: Total cholesterol 117, triglycerides 202, LDL 47, HDL 30 and hemoglobin A1c 8.9% indicative of poor glycemic control. Highly encouraged smoking cessation and indefinite abstinence. -Increased atorvastatin from 20 mg to 40 mg. -Continued Plavix 75 mg daily. Discontinued aspirin. Started on Pradaxa 150 mg twice daily for left ventricular thrombus which may be embolic source for TIAs. 2. Left ventricular thrombus, present on admission. Active. -Possible embolic source of TIA. -Started Pradaxa 150 mg twice daily -Discussed case with digital asset coordinator, Dr. Moore, who recommends repeat echocardiogram in 2 months to assess resolution of left ventricular thrombus. -Discussed right ICA high-grade stenosis with vascular surgeons, Dr. León, at [facility] who requested images be pushed and recommended close follow-up for which patient scheduled for tomorrow 01/13. 3. Hypertension, chronic, present on admission. Stable. -Patient hypertensive on arrival in the ER 195/84, upon arrival to the floor 166/71. -Allowed for permissive hypertension until completion of the MR. -Ordered labetalol as needed for blood pressure greater than 190 systolic. -Patient blood pressure returned to normal pressures and recommend close outpatient follow-up and assessment of BP. 4. Diabetes mellitus type 2, insulin using, present on admission. Stable. -Hemoglobin A1c 8.9% indicative of poor glycemic control. Patient has complication of bilateral neuropathy of the feet. -Continued home NPH. -Continued ACHS blood glucose checks and medium dose correctional scale insulin. -Continued carbohydrate consistent and heart healthy diet. 5. Hyperlipidemia, chronic, present on admission. Stable. -Fasting lipid panel as above. -Continued atorvastatin increased from 20 mg to 40 mg daily. 6. Hypothyroidism, chronic, present on admission. Stable. -TSH within normal limits at 0.83. -Continued levothyroxine 225 mg daily. 7. Current active smoker, chronic, present on admission. Stable. -Teaching provided regarding the impact of smoking in relation to her recurrent neurological events, hypertension and risks of cardiovascular disease. Patient is aware of complications of smoking and has no interest in quitting. -Highly encouraged smoking cessation and indefinite abstinence. Status at Discharge Functional status at discharge: uses cane/walker Overall status at discharge: patient is back to baseline Exam Vital Signs (past 8 hours): Oxygen Delivery Method Room Air Oxygen Flow Rate 0 Narrative Exam Narrative: General: Elderly female sitting in bed and in no acute distress, well- developed, well-nourished, appropriately interactive. HEENT: Normocephalic, atraumatic. External ears without defect. Pupils equal, round, and reactive to light. Anicteric sclerae, moist conjunctivae, and no lid lag. Poor dentition. Neck: Supple with full range of motion. Slight bruit on right. Large scar on left neck. No lymphadenopathy or thyromegaly. Cardiovascular: Regular rate and rhythm without murmurs, rubs, or gallops appreciated. Pulmonary: Clear to auscultation bilaterally without crackles, wheezes, or rhonchi. Normal respiratory effort with no use of accessory muscles. Abdomen: Soft, obese, bowel sounds present, nontender, nondistended. No hepatosplenomegaly or masses appreciated. Extremities: No clubbing, cyanosis, or edema. Skin: Normal temperature, turgor, and texture; no rash, ulcers, or subcutaneous nodules appreciated. Neurological: Cranial nerves grossly intact. Mild right-sided lower extremity weakness +4/5. Psychiatric: Depressed mood and flat affect. Alert and oriented to person, place, and time. Objective Labs Result Diagrams: 01/11/19 01:30 01/11/19 01:30 Discharge Plan Discharge Plan Patient Disposition: Home Health Service Discharge comment: You are being discharged home with home health for PT/OT. You have been started on Pradaxa 150 mg twice daily to prevent blood clots. Please follow up at your scheduled appointment tomorrow with Dr. Sexton regarding your TIA's and carotid artery stenosis to discuss possible need for intervention. You need to follow-up with your digital asset coordinator Dr. Moore at your scheduled appointment to repeat echocardiogram. Please follow-up with your PCP, Dr. Trejo, at your scheduled appointment regarding your hospitalization. Discharge Med Rec/Prescriptions Prescriptions: New nicotine 21 mg/24 hr Patch 24 Hour 21 mg topical DAILY Qty: 1 RF: 0 Pradaxa 75 mg Capsule 150 mg PO BID Qty: 60 RF: 0 Continued Glucose: Test Strips .Route .MEDSUPPLY Qty: 1 RF: 0 Lancets .Route .MEDSUPPLY Qty: 1 RF: 0 levothyroxine 200 mcg tablet 200 mcg PO QAM Qty: 90 RF: 2 gabapentin [Neurontin] 300 mg capsule 300 mg PO TID Qty: 270 RF: 1 clopidogrel 75 mg tablet 75 mg PO HS Qty: 90 RF: 1 pneumoc 13-mark conj-dip cr(PF) [Prevnar 13 (PF)] 0.5 mL syringe 0.5 ml IM ONCE Qty: 0.5 RF: 0 adjuvant AS01B (PF)vial 1 of 2 [Shingrix Adjuvant Component-PF] suspension 0.5 ml IM ONCE Qty: 0.5 RF: 0 paroxetine HCl [Paxil] 30 mg tablet 30 mg PO QAM Qty: 90 RF: 1 omeprazole 20 mg capsule,delayed release(DR/EC) 20 mg PO DAILY Qty: 90 RF: 0 levothyroxine 25 mcg tablet 25 mcg PO QAM Qty: 90 RF: 0 Humulin N NPH Insulin KwikPen 100 unit/mL (3 mL) insulin pen See Rx Instructions subcut BID Qty: 90 RF: 0 [place] .Route .MEDSUPPLY Qty: 100 RF: 0 Changed atorvastatin [Lipitor] 20 mg tablet 40 mg PO HS Qty: 90 RF: 1 Follow up/Referrals: Sen Sexton MD [Non-Staff] - 1 Day (01/13 at 1:30 with check-in time at 1:[address]. [address] [place] [address]) Tori Moore MD [Physician] - 03/15/19 3:10 pm (03/15 @ 3:[address] moore @ [facility] [place] [phone] (please check in 15minutes prior to your scheduled appointment ) Dasha Trejo DO [Primary Care Provider] - 01/21/19 1:10 pm (appt:01/21 @ 1:30 with a 1:10 check in at [address] [place] [address] treoj [phone] ) Provider Discharge Instructions Diet: Diet as Tolerated, Carb-consistent/Diabetic, Low-fat, Low-sodium and Low- cholesterol Activity: Activity as tolerated Visit Report/Discharge Packet Instructions: DI for Transient Ischemic Attack, [place] Discharge Data Primary Care Provider: Dasha Trejo Attending Provider: Timothy Guzman Admzeynep Date/Time: 01/11/19 03:55 Discharges patient from system. Discharge Date/Time: 01/12/19 14:00
== END 2019-01-12 14:00 | disposition home health service (06) ==
LOC: ED 03:25 → AC 03:56
PROVIDERS: Admitting Provider Nurse Practitioner Adult Health; Emergency Provider Emergency Medicine; Family Provider Family Medicine; PCP Family Medicine; Visit Provider Nurse Practitioner Adult Health
DX: G45.9 Transient cerebral ischemic attack, unspecified (principal); R29.818 Other symptoms and signs involving the nervous system; I24.0 Acute coronary thrombosis not resulting in myocardial infarction; I10 Essential (primary) hypertension; Z72.0 Tobacco use; E11.42 Type 2 diabetes mellitus with diabetic polyneuropathy; Z79.4 Long term (current) use of insulin; E78.5 Hyperlipidemia, unspecified; E03.9 Hypothyroidism, unspecified; I69.951 Hemiplegia and hemiparesis following unspecified cerebrovascular disease affecting right dominant side
CPT/HCPCS: 36415; 36591; 70450; 70496; 70498; 70544; 70551; 80048; 80061; 80305; 82962; 83036; 84443; 84484; 85025; 85610; 85730; 93005; 93010; 93307; 94762; 96361; 96372; 96374; 96375; 97161; 97165; 99284; 99285; G0378; J1650; J1885; Q9967

== ENCOUNTER 2019-01-17 16:25 | Emergency (ER) | payer OTHER, SELFPAY ==
[2019-01-11 04:05] VITALS: BMI 29.0
[2019-01-17] VITALS (14 sets, daily range): BP systolic 174–221; BP diastolic 82–134; PULSE 64–93; RESP 14–21; TEMP 36.2; O2SAT 81–98
--- NOTE | 2019-01-17 16:31 | ED_ITS ---
HPI - Neuro Symptoms/Deficit General Chief Complaint: Neuro Symptoms/Deficit Stated Complaint: Stroke Time Seen by Provider: 01/17/19 16:30 Source: patient and EMS Mode of arrival: EMS Limitations: altered mental status History of Present Illness HPI Narrative: This is a 63-year-old female who comes to the emergency department brought by EMS for concern for stroke. When they arrived patient had left-sided weakness, they states that she could not move her left arm or lower extremity and had left sided facial droop. She states that she had a altered affect in seemed almost drunk. Patient was transported here. She had normal glucose. She was last seen normal at 3:30 p.m. today per EMS. Family is not at bedside this time. Patient was recently admitted and discharged on 01/12/2019 for TIA, she was found to have a left ventricular thrombus as well as a right ICA high-grade stenosis with images pushed to vascular for evaluation. She was also started on Pradaxa 150 mg twice daily. Patient is able to squeeze my hand, she does not respond verbally. She does squeeze yes to questions. She cannot move her left side. Related Data Home Medications Medication Instructions Recorded Confirmed Glucose: Test Strips #1 ea 05/24/18 01/11/19 Lancets #1 ea 05/24/18 01/11/19 Previous Rx's Medication Instructions Recorded adjuvant AS01B (PF), component 0.5 ml IM ONCE #0.5 ml 05/24/18 vial 1 of 2 intramuscular suspension clopidogrel 75 mg tablet 75 mg PO HS #90 tab 05/24/18 gabapentin 300 mg capsule 300 mg PO TID #270 cap 05/24/18 levothyroxine 200 mcg tablet 200 mcg PO QAM #90 tab 05/24/18 pneumococcal 13-mark conj 0.5 ml IM ONCE #0.5 ml 05/24/18 vaccine-dip crm (PF) 0.5 mL IM syringe paroxetine 30 mg tablet 30 mg PO QAM #90 tab 07/12/18 omeprazole 20 mg capsule,delayed 20 mg PO DAILY #90 cap 11/02/18 release [place] #100 each 11/17/18 insulin NPH isophane U-100 human See Rx Instructions SUBCUT BID #90 11/17/18 100 unit/mL (3 mL) subcutaneous pen ml levothyroxine 25 mcg tablet 25 mcg PO QAM #90 tab 11/17/18 atorvastatin [Lipitor] 40 mg PO HS #90 tab 01/12/19 dabigatran etexilate [Pradaxa] 150 mg PO BID #60 cap 01/12/19 nicotine 21 mg TOPICAL DAILY #1 pkg 01/12/19 Allergies Allergy/AdvReac Type Severity Reaction Status Date / Time codeine [CODEINE] Allergy Unknown VOMITING Verified 12/21/18 17:26 hydromorphone [From DILAUDID] Allergy Unknown I DON'T Verified 12/21/18 17:26 WAKE UP meperidine [From DEMEROL] Allergy Unknown VOMITING Verified 12/21/18 17:26 Penicillins [PENICILLINS] Allergy Unknown THROAT Verified 12/21/18 17:26 CLOSES Review of Systems Review of Systems ROS Unobtainable: All systems reviewed & are unremarkable except as noted in HPI and below PFSH Medical History Cataracts, bilateral (Acute 2007) TIA (transient ischemic attack) (Acute) Carotid artery disease (Chronic 2013) Chronic back pain (Chronic) Depression (Chronic 1985) Diabetes (Chronic 2004) GERD (gastroesophageal reflux disease) (Chronic 1989) Generalized headaches (Chronic) Hyperlipidemia (Chronic) Hypothyroidism (Chronic) Migraines (Chronic) Peripheral vascular disease (Chronic 2012) Sleep apnea (Chronic) Vertigo (Chronic 2014) Chickenpox (Resolved 1957) Colitis (Resolved 1988) Dysplastic polyp of colon (Resolved ~2001) Fractures (Resolved) History of trigger finger (Resolved) Hyperthyroidism (Resolved 1993) Measles (Resolved 1956) Mumps (Resolved 1958) Plantar warts (Resolved) Stroke (Resolved 2013) Surgical History History of left-sided carotid endarterectomy (Resolved) History of partial colectomy (Resolved) Hx of cholecystectomy (Resolved) Hx of knee surgery (Resolved) Hx of surgical procedure (Resolved) Hx of surgical procedure (Resolved) History of tonsillectomy Status post appendectomy Family History Mother Cancer Sister Diabetes mellitus Father Cancer Social History household members: spouse and family Smoking Status: Current every day smoker Tobacco: How many years used: 50 alcohol intake: never Family History Mother Cancer Sister Diabetes mellitus Father Cancer Social History household members: spouse and family Smoking Status: Current every day smoker Tobacco: How many years used: 50 alcohol intake: never Exam Narrative Exam Narrative: GEN: Obese elderly appearing female, alert, follows commands, patient appears to be in moderate to severe distress. HEENT: Atraumatic, pupils are equal round reactive to light, patient has a right lateral gaze, nares are clear, patient has left facial. Throat is clear without any exudates, erythema, tonsillar enlargement or uvular deviation HEART: Regular rate and rhythm without murmur, clicks, rubs. pulses are equal in upper and lower extremities LUNGS:Lungs clear to auscultation, no wheezes, rales, crackles, chest moves symmetrically ABD:bowel sounds normal, soft, non-tender, no guarding, rebound, rigidity, no masses noted, no hepatosplenomegaly MSCL: Non-tender, no muscle atrophy, patient's flaccid on the left with upper and lower extremities. Patient does have sensation and full movement of her right upper extremity and is able to move her right lower extremity for me. NEURO: Patient does attempt to use finger-nose with her right side but has little bit of difficulty but she also cannot see. She has severe aphasia and is almost mute. She does follow commands, she does seem to understand questions and at times to interact. Initial Vital Signs Initial Vital Signs: Vital Signs Pulse Rate 93 H 01/17/19 16:30 Respiratory Rate 19 01/17/19 16:30 Blood Pressure 209/85 H 01/17/19 16:30 Scores GCS [place] coma scale eye opening: None [place] coma scale verbal response: Orientated [place] coma scale motor response: Obey commands [place] coma scale total score: 12 NIH Stroke Scale Level of Conciousness: Not alert, but arousable by minor stim to obey, answer or respond Ask month/age: Answers neither question correctly, aphasic, stuporous, coma Open/close eyes, close hand: Performs one task correctly Best gaze horizontal: Forced deviation or total gaze paresis not overcome Visual delg[place]: Bilateral hemianopia, blind Facial palsy: Complete paralysis, absence of movement in the upper and lower face Left arm drift: No effort against gravity Right arm drift: No drift for full 10 sec Left leg drift: No effort against gravity Right leg drift: No drift for full 10 sec Limb ataxia: Present in two limbs Sensory on face/arms/legs: Severe to total sensory loss, not aware of touch, coma, quadriplegic Best language: Severe aphasia, not much is understood, fragmented Dysarthria: Physical barrier to speech, intubated Extinction or inattention: Profound kala-inattention. Does not recognize own hand, one side Total NIH Stroke scale score: 29 Course Orders Ordered: ED Orders 01/17/19 16:31 CT angio head and neck Stat Complete Blood Count AUTO DIFF Stat 01/17/19 16:32 Basic Metabolic Panel Stat Partial Thromboplastin Time Stat Prothrombin Time INR Stat Troponin I Stat 01/17/19 16:36 EKG-12 Lead Stat 01/17/19 16:54 Urinalysis and Microscopic Stat Urine Drug Screen, Rapid Stat Sodium Chloride (Normal Saline 0.9%) 1,000 mls @ 150 mls/hr IV CONT PADMINI Last Admin: 01/17/19 16:42 Dose: 150 mls/hr Esmolol HCl (Brevibloc) 2.5 gm in 250 mls @ 0 mls/hr IV TITRATE PADMINI; Protocol Last Titration: 01/17/19 18:02 Dose: 75.2 mls/hr Admin: 01/17/19 17:45 Dose: 5.2 mls/hr Discontinued Medications Labetalol HCl (Normodyne) 10 mg IV NOW ONE Stop: 01/17/19 16:45 Last Admin: 01/17/19 16:42 Dose: 10 mg Vital Signs - 8 hr 01/17/19 16:30 01/17/19 16:40 01/17/19 16:43 Temperature 97.2 F L Pulse Rate 93 H 92 H 92 H Respiratory Rate 19 18 21 Blood Pressure 209/85 H Blood Pressure [Right Arm] 209/85 H 206/89 H Pulse Oximetry 98 81 L 01/17/19 16:50 01/17/19 16:59 01/17/19 17:03 Temperature Pulse Rate 77 77 78 Respiratory Rate 17 18 19 Blood Pressure Blood Pressure [Right Arm] 199/94 H 206/89 H 199/94 H Pulse Oximetry 98 97 98 01/17/19 17:10 01/17/19 17:20 01/17/19 17:31 Temperature Pulse Rate 75 68 67 Respiratory Rate 17 18 Blood Pressure Blood Pressure [Right Arm] 179/82 H 174/134 H 202/92 H Pulse Oximetry 94 98 98 01/17/19 17:40 01/17/19 17:54 01/17/19 18:05 Temperature Pulse Rate 70 71 64 Respiratory Rate 16 19 18 Blood Pressure Blood Pressure [Right Arm] 185/100 H 221/98 H 195/84 H Pulse Oximetry 97 96 01/17/19 18:13 01/17/19 18:30 Temperature Pulse Rate 68 Respiratory Rate 14 Blood Pressure Blood Pressure [Right Arm] 184/101 H Pulse Oximetry 98 95 MDM - Neuro Symptoms/Deficit Lab Data Attestation: I reviewed the patient's lab results. Result diagrams: 01/17/19 16:31 01/17/19 16:32 Lab Results 01/17/19 01/17/19 01/17/19 Range/Units 16:31 16:32 16:32 WBC 12.8 H (4.5-11.0) X10^3/uL RBC 5.81 H (4.0-5.2) X10^6/uL Hgb 15.0 (12.0-16.0) g/dL Hct 46.7 H (36-46) % MCV 80.4 (80-100) fL MCH 25.9 L (26-34) PG MCHC 32.2 (30-36) % RDW 16.1 H (11.6-14.8) % Plt Count 278 (150-400) X10^3/uL Neut % (Auto) 51.8 (50-75) % Lymph % (Auto) 40.3 H (25-40) % [place] % (Auto) 4.7 (3-14) % Eos % (Auto) 2.2 (2-4) % Baso % (Auto) 1.0 (0-2) % Neut # (Auto) 6600 (9430-1048) /uL Lymph # (Auto) 5200 H (3331-0952) /uL [place] # (Auto) 600 (0-900) /uL Eos # (Auto) 300 (0-450) /uL Baso # (Auto) 100 (0-100) /uL PT 15.4 H (10.1-12.7) SECONDS INR 1.3 (0.9-1.3) APTT 51 H D (26.4-36.2) SECONDS Sodium (137-145) mmol/L Potassium (3.4-5.1) mmol/L Chloride (98-107) mmol/L Carbon Dioxide (22-32) mmol/L BUN (7-17) mg/dL Creatinine (0.52-1.04) mg/dL Estimated GFR (>60) mL/min BUN/Creatinine Ratio (6-22) Glucose (80-110) mg/dL Calcium (8.4-10.2) mg/dL Troponin I 0.041 H (0.01-0.034) ng/mL Urine Color Urine Appearance Urine pH (4.5-8.0) Ur Specific [place] (1.000-1.035) Urine Protein (Negative) Urine Glucose (UA) (Negative) g/dL Urine Ketones (NEGATIVE) Urine Occult Blood (Negative) Urine Nitrate (Negative) Urine Bilirubin (NEGATIVE) Urine Urobilinogen (0.2) E.U./dL Ur Leukocyte Esterase (NEGATIVE) Urine RBC (0-5/HPF) Urine WBC (0-5/HPF) Ur Squamous Epith Cells (0-5/HPF) Amorphous Sediment Urine Bacteria (None) Ur Culture Indicated? Urine Opiates Screen (Negative) Ur Oxycodone Screen (Negative) Urine Methadone Screen (Negative) Ur Barbiturates Screen (Negative) U Tricyclic Antidepress (Negative) Ur Phencyclidine Scrn (Negative) Ur Amphetamines Screen (Negative) U Methamphetamines Scrn (Negative) Ur MDMA Scrn (Ecstasy) (Negative) U Benzodiazepines Scrn (Negative) Urine Cocaine Screen (Negative) U Marijuana (THC) Screen (Negative) 01/17/19 01/17/19 01/17/19 Range/Units 16:32 16:54 16:54 WBC (4.5-11.0) X10^3/uL RBC (4.0-5.2) X10^6/uL Hgb (12.0-16.0) g/dL Hct (36-46) % MCV (80-100) fL MCH (26-34) PG MCHC (30-36) % RDW (11.6-14.8) % Plt Count (150-400) X10^3/uL Neut % (Auto) (50-75) % Lymph % (Auto) (25-40) % [place] % (Auto) (3-14) % Eos % (Auto) (2-4) % Baso % (Auto) (0-2) % Neut # (Auto) (9681-0051) /uL Lymph # (Auto) (6169-9426) /uL [place] # (Auto) (0-900) /uL Eos # (Auto) (0-450) /uL Baso # (Auto) (0-100) /uL PT (10.1-12.7) SECONDS INR (0.9-1.3) APTT (26.4-36.2) SECONDS Sodium 141 (137-145) mmol/L Potassium 4.5 (3.4-5.1) mmol/L Chloride 104 (98-107) mmol/L Carbon Dioxide 24 (22-32) mmol/L BUN 7 (7-17) mg/dL Creatinine 0.90 (0.52-1.04) mg/dL Estimated GFR > 60.0 (>60) mL/min BUN/Creatinine Ratio 7.8 (6-22) Glucose 271 H D (80-110) mg/dL Calcium 9.3 (8.4-10.2) mg/dL Troponin I (0.01-0.034) ng/mL Urine Color Yellow Urine Appearance Clear Urine pH 6.0 (4.5-8.0) Ur Specific [place] 1.020 (1.000-1.035) Urine Protein 2+ H (Negative) Urine Glucose (UA) 1+ H (Negative) g/dL Urine Ketones Negative (NEGATIVE) Urine Occult Blood Trace-lysed (Negative) Urine Nitrate Negative (Negative) Urine Bilirubin Negative (NEGATIVE) Urine Urobilinogen 0.2 (0.2) E.U./dL Ur Leukocyte Esterase Negative (NEGATIVE) Urine RBC 0-1/hpf (0-5/HPF) Urine WBC 0-1/hpf (0-5/HPF) Ur Squamous Epith Cells 0-1 /hpf (0-5/HPF) Amorphous Sediment 3+ Urine Bacteria None seen (None) Ur Culture Indicated? Cult not indicated Urine Opiates Screen Negative (Negative) Ur Oxycodone Screen Negative (Negative) Urine Methadone Screen Negative (Negative) Ur Barbiturates Screen Negative (Negative) U Tricyclic Antidepress Negative (Negative) Ur Phencyclidine Scrn Negative (Negative) Ur Amphetamines Screen Negative (Negative) U Methamphetamines Scrn Negative (Negative) Ur MDMA Scrn (Ecstasy) Negative (Negative) U Benzodiazepines Scrn Negative (Negative) Urine Cocaine Screen Negative (Negative) U Marijuana (THC) Screen Negative (Negative) Imaging Data CT scan - head: Radiologist's impression: Melida Abbott 63 F [address] [address] [address] Scan Report Signed Patient: Melida Abbott JMR#: [id number] : [id number]:[id number] Age/Sex: 63 / FDate of Service: 01/11/19 Loc: OV884-1 Accession Number: [id number] Procedure: CT head/brain wo con Ordering Provider: Lalo Osullivan D.O. PROCEDURE: CT HEAD/BRAIN WO CON INDICATIONS: TIM, R side weakness/numbness hx CVA TECHNIQUE: Noncontrast 4.5 mm thick angled axial sections acquired from the foramen magnum to the vertex, with coronal and sagittal reformats. For radiation dose reduction, the following was used: automated exposure control, adjustment of mA and/or kV according to patient size. COMPARISON: [facility], CT, HEAD WITHOUT CONTRAST, 01/12/2017, 19:46. FINDINGS: Image quality: Excellent. CSF spaces: Basal cisterns are patent. No extra-axial fluid collections. The ventricles are symmetric in size and shape. Brain: No intracranial bleeds or masses. Focal loss of steinberg-white matter differentiation noted in the anterior margin of the left temporal lobe which could represent artifact versus subacute infarct. There is cerebral volume loss for age, with resultant ventricular and sulcal prominence. There are periventricular and deep white matter chronic small vessel ischemic changes. There is intracranial internal carotid artery and vertebral artery atherosclerosis. Skull and face: Calvarium and visualized facial bones appear intact, without suspicious lesions. Sinuses: Visualized sinuses and mastoids are clear. IMPRESSION: Anterior left temporal lobe loss of steinberg-white matter differentiation compatible with artifact versus subacute infarct. Dictated by: Melissa Ch MD, PhD on 01/11/2019 at 7:45 Approved by: Melsisa Ch MD, PhD on 01/11/2019 at 7:47 Ct Angio Head: Radiologist's impression: [address] [address] [address] Scan Report Signed Patient: Melida Abbott JMR#: [id number] : [id number]:[id number] Age/Sex: 63 / FDate of Service: 01/17/19 Loc: ED Accession Number: [id number] Procedure: CT angio head and neck Ordering Provider: Kassandra Rodriguez D.O. PROCEDURE: CT ANGIO HEAD AND NECK INDICATIONS: cva TECHNIQUE: Pre-contrast 4.5 mm thick sections acquired from the foramen magnum to the vertex. After the administration of intravenous contrast, 1 mm thick sections acquired from the aortic arch through the [place] of [place]. Post-contrast 4.5 mm thick sections then re- acquired from the foramen magnum to the vertex. 3-dimensional ekgyeqt-pdusszkgr-qeovtiphzl (MIP) and/or volume rendering reformats were acquired of the central intracranial vasculature and neck separately. COMPARISON: [facility], MR, MR HEAD/BRAIN WO CON, 01/11/2019, 7:25. [facility], MR, MR ANGIO HEAD WO CON, 01/11/2019, 7:25. [facility], CT, CT ANGIO HEAD AND NECK, 01/11/2019, 1:38. [facility], CT, CT HEAD/BRAIN WO CON, 01/11/2019, 1:00. [facility] US, US CAROTID DOPPLER BI, 09/22/2018, 12:26. FINDINGS: Image quality: Excellent. BRAIN: CSF spaces: Ventricles are normal in size and shape. Basal cisterns are patent. No extra-axial fluid collections. Brain: No midline shift. No intracranial bleeds or masses. Steinberg-white matter interface appears intact. Skull and face: Calvarium and facial bones appear intact, without suspicious lesions. Orbits appear normal. Sinuses: Sinuses and mastoids are clear. HEAD CT ANGIOGRAPHY: Anterior circulation: There is a proximal right MCA occlusion seen, as on series 13 image 16. This is new compared to the prior recent examinations. There is almost no flow seen within the right MCA territory. Intracranial internal carotid arteries are normal in size and flow. The flow within the paired anterior cerebral arteries is symmetric. There is generally reduced flow within the anterior cerebral arteries. The anterior communicating artery is seen. No aneurysms are seen. Posterior circulation: Visualized portions of the vertebral arteries demonstrate normal caliber, and join to form a normal appearing basilar artery. Flow within the posterior cerebral arteries is normal and symmetric. No aneurysms are seen. NECK CT ANGIOGRAPHY: Carotid system: The great vessels demonstrate a conventional anatomy as they arise from the aortic arch. The origins of the common carotid arteries appear patent. The common carotid arteries demonstrate normal caliber and courses. The bifurcation regions demonstrate atherosclerotic irregularity. There is at least 80 percent stenosis involving the origin of the right internal carotid artery. No hemodynamically significant stenosis can be seen involving the origin of the left internal carotid artery, which has undergone a prior endarterectomy. Posterior circulation: The origins of the vertebral arteries both appear widely patent. The more superior extracranial portions of both vertebral arteries also demonstrate normal courses and calibers. They join to form a normal appearing basilar artery. Soft tissues: Visualized neck soft tissues demonstrate no suspicious abnormalities. Bones: No suspicious bony lesions. Visualized cervical spine appears normally aligned. IMPRESSION: Proximal right MCA occlusion, with almost no flow seen within the right MCA territory. This is a new finding compared to the recent prior imaging. If clinically appropriate, please consider a consultation with an intracranial interventionalist. No acute intracranial hemorrhage is seen. At least 80% stenosis seen involving the origin of right internal carotid artery. Prior left carotid endarterectomy. Note: Findings and recommendations relayed to Dr. Rodriguez via ER staff, Karissa, at 5:15 PM [place] time on the day of dictation. Any quantitative measurements of stenosis were performed using NASCET criteria. Dictated by: Jamaal Pittman M.D. on 01/17/2019 at 16:05 Approved by: Jamaal Pittman M.D. on 01/17/2019 at 16:18 ECG Data Attestation: I personally reviewed and interpreted this ECG as follows: Prior ECG tracings: available for review Interpretation: Sinus rhythm rate of 92 P are 163 QRS 86 QTC of 450. No ST elevation or depression. Q-wave in 3 and AVF. Patient has EKG from 01/11/2019 that appears similar with nonspecific changes. MDM Narrative Medical decision making narrative: Patient's exam is concerning for MCA stroke. Patient went straight to head CT and angio which does show a right proximal MCA with no flow. Patient has been taking Pradaxa and is not a tPA candidate alt patt she was in the time window. Patient is initially appears obtended but had improved mentation all the department. She does follow some commands but has severe deficits. Spoke with Dr. Hebert from tele stroke at [facility]. She accepts for transfer for potential intervention with code IR. Patient labs are reviewed. Code status was discussed little bit with the patient, she the patient herself seems to be indicating she does not want to be intubated. It is unclear if she would want other intervention. Patient's family had not initially arrived, they did later arrives and states they feel she would want intervention. They seem that she may be interested or open to short-term intubation but would not want any kind of long-term intubation. During her course patient was quite hypertensive in the 200 range she was started on esmolol drip after single dose of labetalol which had minimal improvement. Patient's pressures have been improving to the 195/185 range. Nursing was asked not to decrease her pressure any further than this. Airlift assumed care for transfer. Critical Care Time Critical Care Time: Yes Total Critical Care Time: 130 Attestation: The high probability of a clinically significant, sudden or life threatening deterioration of the [neurologic, cardiac, pulm] system(s) required my full and direct attention, intervention and personal management. The aggregate critical care time was [130] minutes. This time is in addition to time spent performing reported procedures but includes the following: x] Data Review and interpretation [x] Patient assessment and monitoring of vital signs [x] Documentation [x] Medication orders and management Discharge Plan Departure Patient Disposition: [facility] Clinical Impression: Acute CVA (cerebrovascular accident) Prescriptions: No Action Glucose: Test Strips .Route .MEDSUPPLY Qty: 1 RF: 0 Lancets .Route .MEDSUPPLY Qty: 1 RF: 0 levothyroxine 200 mcg tablet 200 mcg PO QAM Qty: 90 RF: 2 gabapentin [Neurontin] 300 mg capsule 300 mg PO TID Qty: 270 RF: 1 clopidogrel 75 mg tablet 75 mg PO HS Qty: 90 RF: 1 pneumoc 13-mark conj-dip cr(PF) [Prevnar 13 (PF)] 0.5 mL syringe 0.5 ml IM ONCE Qty: 0.5 RF: 0 adjuvant AS01B (PF)vial 1 of 2 [Shingrix Adjuvant Component-PF] suspension 0.5 ml IM ONCE Qty: 0.5 RF: 0 paroxetine HCl [Paxil] 30 mg tablet 30 mg PO QAM Qty: 90 RF: 1 omeprazole 20 mg capsule,delayed release(DR/EC) 20 mg PO DAILY Qty: 90 RF: 0 levothyroxine 25 mcg tablet 25 mcg PO QAM Qty: 90 RF: 0 Humulin N NPH Insulin KwikPen 100 unit/mL (3 mL) insulin pen See Rx Instructions subcut BID Qty: 90 RF: 0 [place] .Route .MEDSUPPLY Qty: 100 RF: 0 nicotine 21 mg/24 hr Patch 24 Hour 21 mg topical DAILY Qty: 1 RF: 0 Pradaxa 75 mg Capsule 150 mg PO BID Qty: 60 RF: 0 atorvastatin [Lipitor] 20 mg tablet 40 mg PO HS Qty: 90 RF: 1 Referrals: Dasha Trejo DO [Primary Care Provider] -
[2019-01-17 16:34] LABS: Add Manual Diff / Slide Review NO; Basophils Absolute Auto 100 /uL (0-100); Eosinophils Absolute Auto 300 /uL (0-450); Eosinophils Percent Auto 2.2 % (2-4); Hematocrit 46.7 % (36-46); Lymphocytes Absolute Auto 5200 /uL (1100-4500); Lymphocytes Percent Auto 40.3 % (25-40); Mean Corpuscular HGB Conc 32.2 % (30-36); Mean Corpuscular Hemoglobin 25.9 PG (26-34); Mean Corpuscular Volume 80.4 fL (80-100); Monocytes Absolute Auto 600 /uL (0-900); Monocytes Percent Auto 4.7 % (3-14); Neutrophils Absolute Auto 6600 /uL (1500-7000); Neutrophils Percent Auto 51.8 % (50-75); Platelet Count 278 X10^3/uL (150-400); Red Blood Cell Count 5.81 X10^6/uL (4.0-5.2); Red Cell Distribution Width 16.1 % (11.6-14.8); White Blood Cell Count 12.8 X10^3/uL (4.5-11.0)
[2019-01-17 16:38] LABS: INR 1.3 (0.9-1.3); Prothrombin Time 15.4 SECONDS (10.1-12.7)
[2019-01-17 16:41] LABS: PTT Partial Thromboplastin Tim 51 SECONDS (26.4-36.2)
[2019-01-17 16:42] LABS: BUN Creatinine Ratio 7.8 (6-22); Blood Urea Nitrogen 7 mg/dL (7-17); Calcium 9.3 mg/dL (8.4-10.2); Carbon Dioxide 24 mmol/L (22-32); Chloride 104 mmol/L (98-107); Estimated Glomerular Filt Rate > 60.0 mL/min (>60); Glucose 271 mg/dL (80-110); HEMOLYSIS 57 (0-50); Potassium 4.5 mmol/L (3.4-5.1); Sodium 141 mmol/L (137-145)
[2019-01-17] MEDS: SODIUM CHLORIDE 0.9% 1,000 ML 150 ML IV (16:42)
[2019-01-17] MEDS: LABETALOL 100 MG/20ML MDV 10 MG IV (16:42)
[2019-01-17 16:54] LABS: Troponin I 0.041 ng/mL (0.01-0.034)
[2019-01-17 17:02] LABS: Appearance Urine UA CLEAR; Bilirubin Urine UA NEGATIVE (NEGATIVE); Color Urine UA YELLOW; Glucose Urine UA 1+ g/dL (Negative); Ketones Urine UA NEGATIVE (NEGATIVE); Leukocyte Esterase Urine UA NEGATIVE (NEGATIVE); Nitrite Urine UA NEGATIVE (Negative); Occult Blood Urine UA TRACE-LYSED (Negative); Protein Urine UA 2+ (Negative); Urobilinogen Urine UA 0.2 E.U./dL (0.2)
[2019-01-17 17:03] LABS: Urine Amphetamines Negative (Negative); Urine Barbiturates Negative (Negative); Urine Benzodiazepines Negative (Negative); Urine Cocaine Negative (Negative); Urine MDMA Negative (Negative); Urine Methadone Negative (Negative); Urine Methamphetamines Negative (Negative); Urine Morphine/Opi cutoff 2000 Negative (Negative); Urine Oxycodone Negative (Negative); Urine Phencyclidine Negative (Negative); Urine Tetrahydrocannabinol Negative (Negative); Urine Tricyclic Antidepressant Negative (Negative)
[2019-01-17 17:05] LABS: Bacteria Urine None Seen
[2019-01-17 17:09] LABS: Amorphous Sediment Urine 3+; RBC Urine 0-1/HPF (0-5/HPF); Squamous Epithelial Cell Urine 0-1 /HPF (0-5/HPF); WBC Urine 0-1/HPF (0-5/HPF)
[2019-01-17 17:10] LABS: Culture Indicated Urine Cult Not Indicated
[2019-01-17] MEDS: ESMOLOL 2.5 GM/250 ML IV.SOLN 5.2 GM IV (17:45)
--- NOTE | 2019-01-17 18:26 | PC.NURSE ---
ED at [facility] called for report. Gave report. Asked to call them w/ ETA when airlift takes leaves w/ patient ()
--- NOTE | 2019-01-17 18:33 | CM.SWNOTE ---
ED [employer] Note [employer] was asked by charge nurse ot check in with family. Pt's , son and [id number] were present in the room. Pt's immediately began to tear up, stated that they have been for almost 41 years and she is his support. Pt's is currently at [facility] due to his own health issues. [employer] remained with pt's family until airlift staff arrived. UND[employer] provided supportive and reflective listening and helped to support pt's family with problem solving.Pt to d/c to [facility].
--- NOTE | 2019-01-17 18:46 | PC.NURSE ---
Updated [place] [facility] w/ ETA.
--- NOTE | 2019-01-17 18:50 | PC.NURSE ---
Final esmolol drip rate at 200 mcg/kg/min titrated to keep systolic BP below 190, per Dr. Rodriguez.
== END 2019-01-17 18:52 | disposition short-term general hospital (02) ==
PROVIDERS: Emergency Provider Emergency Medicine; Family Provider Family Medicine; PCP Family Medicine
DX: I63.9 Cerebral infarction, unspecified (principal)
CPT/HCPCS: 51701; 70496; 70498; 80048; 80305; 81001; 84484; 85025; 85610; 85730; 93005; 96361; 96365; 96375; 99285; 99291; 99292; Q9967